=== PATIENT | female | born 1975 | race Caucasian/White ===

== ENCOUNTER 2016-08-13 02:20 | Emergency (ER) | payer BC ==
[2016-02-02 14:39] VITALS: BMI 21.3
[~2016-08-13 02:20] MED LIST: AMBIEN10 MG PO; CARAFATE1 G PO; COLACE100 MG PO; CREON (PANCRELI1 CAP PO; CYMBALTA60 MG PO; DEPAKOTE500 MG PO; EFFEXOR75 MG PO; ESTRACE1 MG PO; ESTRACE2 MG PO; IMITREX100 MG PO; IMITREX50 MG PO; K-DUR20 MEQ PO; NUCYNTA100 MG PO; PHENERGAN25 M1 PO; PROTONIX40 MG PO; TOPAMAX100 MG PO; TOPAMAX25 MG PO; TOPAMAX50 MG PO; XANAX1 MG PO; ZANAFLEX4 MG PO; ZOFRAN ODT4 MG/UDTAB PO
[2016-08-13 02:59] LABS: BASOPHILS 0.2 % (0.0-2.0); EOSINOPHILS 1.9 % (0-7); HEMATOCRIT 37.3 % (36.0-48.0); HEMOGLOBIN 12.6 g/dL (12-16); LYMPHOCYTES 48.6 % (15-50); MCH 31.6 pg (26.0-34.0); MCHC 33.8 g/dL (31.0-37.0); MCV 93.5 fL (80.0-100.0); MEAN PLATELET VOLUME 9.2 fL (7.4-10.4); MONOCYTES 7.5 % (2-11); NEUTROPHILS 41.8 % (40-80); PLATELET COUNT 198 10x3/uL (130-400); RBC 3.99 10x6/uL (4.00-5.40); RDW 12.3 % (11.5-14.5); WBC 6.2 10x3/uL (4.8-10.8)
[2016-08-13 03:12] LABS: ALBUMIN 3.7 g/dL (3.4-5.0); ALKALINE PHOSPHATASE 67 U/L (46-116); ALT (SGPT) 19 U/L (10-68); AMYLASE - SERUM 53 U/L (25-115); CALC OSMOLALITY 281 mosm/kg (275-300); CALCIUM 9.1 mg/dL (8.5-10.1); CARBON DIOXIDE 26.7 mmol/L (21.0-32.0); CHLORIDE - SERUM 106 mmol/L (98-107); CREATININE - SERUM 0.8 mg/dL (0.6-1.3); GLUCOSE 111 mg/dL (74-106); LIPASE 356 U/L (73-393); POTASSIUM - SERUM 3.4 mmol/L (3.5-5.1); PROTEIN - SERUM 6.5 g/dL (6.4-8.2); SODIUM 141 mmol/L (136-145); UREA NITROGEN 12 mg/dL (7-18); eGFR NON AFRICAN AMERICAN 85 mL/min (90-120)
== END 2016-08-13 04:43 | disposition home or self-care (01) ==
LOC: D.ER 02:20
PROVIDERS: Emergency Medicine
DX: R10.9 Unspecified abdominal pain (principal)

== ENCOUNTER 2016-08-14 23:14 | Emergency (ER) | payer BC ==
[2016-02-02 14:39] VITALS: BMI 21.3
[2016-08-15] MEDS ORDERED: XANAX1 MG PO (14:49)
== END 2016-08-15 00:40 | disposition left against medical advice (07) ==
LOC: D.ER 23:14
DX: R10.9 Unspecified abdominal pain (principal); M50.20 Other cervical disc displacement, unspecified cervical region; F17.200 Nicotine dependence, unspecified, uncomplicated

== ENCOUNTER 2016-08-15 14:09 | Inpatient (IN) | payer BC ==
[~2016-08-15] VITALS: Ht 160 cm; Wt 54.4 kg
[2016-08-15] MEDS ORDERED: XANAX1 MG PO (14:49)
[2016-08-15 14:51] VITALS: BP 159/75
--- NOTE | 2016-08-15 15:14 | NUR ---
Patient Name: MAYA OCONNELL Admission Status: Urgent Accout number: [id number] Admission Date: 08-15-2016 : 1975 Admission Diagnosis: Attending: HERBERT Current LOS: 1 Anticipated DC Date: 08-18-2016 Planned Disposition: Home Primary Insurance: BLUE CROSS TRUE BLUE PPO Discharge Planning Comments: CM MET WITH PATIENT REGARDING D/C NEEDS AND PLANS. PATIENT STATED SHE LIVES WITH HER SPOUSE (ENEDELIA) AND HE WILL PICK HER UP AT DISCHARGE. PATIENT STATED SHE IS INDEPENDENT WITH HER CARE AND HAS NO DME AT HOME. PATIENT STATED SHE DOES NOT HAVE A PCP BUT GOES TO THE WALK IN CLINIC WHEN SICK. PATIENT STATED SHE LIVES IN A 10,000 SQ FOOT HOUSE AND HAS 2 STAIRCASES W/ RAILING INSIDE HER HOME AND ONE STEP W/O RAILING TO ENTER HOME. PATIENT STATED SHE HAS NEVER HAD HOME HEALTH. CM WILL CONTINUE TO FOLLOW PATIENT WITH D/C NEEDS AND PLANS. PCP NONE [facility] [address] [facility]- [phone] ENEDELIA (SPOUSE) [phone] Clock And Watch Hands Painter: [place] Is the patient Alert and Oriented? Yes 0 * How many steps to enter\exit or inside your home? 2 FLIGHTS 0 * PCP NONE 0 * Pharmacy [facility] [address] * Preadmission Environment Home with Family 0 * ADLs Independent 0 * Equipment None 0 * List name and contact numbers for known caregivers / representatives who currently or will assist patient after discharge: ENEDELIA OCONNELL (SPOUSE) [phone] 0 * Community resources currently utilized None 0 * Additional services required to return to the preadmission environment? Yes 0 * Can the patient safely return to the preadmission environment? Yes 0 * Has this patient been hospitalized within the prior 30 days at any hospital? No 0 Grand Total: 0
[2016-08-15 15:18] LABS: BASOPHILS 0.4 % (0.0-2.0); EOSINOPHILS 0.7 % (0-7); HEMATOCRIT 35.8 % (36.0-48.0); LYMPHOCYTES 41.3 % (15-50); MCH 31.5 pg (26.0-34.0); MCHC 33.5 g/dL (31.0-37.0); MEAN PLATELET VOLUME 9.8 fL (7.4-10.4); MONOCYTES 5.9 % (2-11); NEUTROPHILS 51.7 % (40-80); PLATELET COUNT 216 10x3/uL (130-400); RBC 3.81 10x6/uL (4.00-5.40); RDW 12.5 % (11.5-14.5); WBC 4.6 10x3/uL (4.8-10.8)
[2016-08-15 15:39] LABS: ALBUMIN 3.8 g/dL (3.4-5.0); ALKALINE PHOSPHATASE 67 U/L (46-116); ALT (SGPT) 26 U/L (10-68); AMYLASE - SERUM 37 U/L (25-115); BILIRUBIN - TOTAL 0.27 mg/dL (0.2-1.3); CALC OSMOLALITY 282 mosm/kg (275-300); CALCIUM 9.1 mg/dL (8.5-10.1); CHLORIDE - SERUM 108 mmol/L (98-107); CREATININE - SERUM 0.8 mg/dL (0.6-1.3); GLUCOSE 112 mg/dL (74-106); LIPASE 154 U/L (73-393); POTASSIUM - SERUM 3.6 mmol/L (3.5-5.1); PROTEIN - SERUM 6.1 g/dL (6.4-8.2); SODIUM 143 mmol/L (136-145); UREA NITROGEN 4 mg/dL (7-18); eGFR NON AFRICAN AMERICAN 85 mL/min (90-120)
[2016-08-15 16:25] VITALS: BP 159/75; BMI 21.3
--- NOTE | 2016-08-15 18:35 | NUR ---
PATIENT ADMITTED A DIRECT ADMIT FROM DR. TUCKER. PATIENT CAME IN ALERT AND ORIENTED. PATIENT ABD PAIN WITH PAIN MEDS ORDERED. BED IS LOW CALL LIGHT IS IN REACH
[2016-08-15 21:18] VITALS: BP 126/81
--- NOTE | 2016-08-15 21:25 | NUR ---
PHONE CALL RECEIVED FROM DR TUCKER IN WHICH HE STATES THAT THE PATIENT HAS TEXTED HIM AND SAID SHE IS UNBEARABLE PAIN. ASSESSED PT AT THIS TIME AND SHE WAS LYING ON LEFT SIDE WITH EYES CLOSED. PT AWOKEN AND ASKED PAIN LEVEL AND SHE STATED 8/10 IN THE LOWER ABDOMEN. LET DR TUCKER KNOW THIS INFORMATION AND HE ORDERED THE PT A ONE TIME DOSE OF ATIVAN 1MG IV.
[2016-08-16] VITALS (11 sets, daily range): BP systolic 102–143; BP diastolic 48–93
--- NOTE | 2016-08-16 17:06 | NUR ---
RECEIVED PT FROM THE MED SURG FLOOR. SHE CAME BY WHEELCHAIR. SHE HAS IV PATENT IN HER R HAND. WITH NS @ 125 CC/H, ZOFRAN DRIP AND DILAUDID FARM LOAN REPRESENTATIVE INTACT. PT STATES THAT SHE HAD THE START OF A HEADACHE AND SHE TOOK HER OWN IMITREX FROM HOME. BED IS LOW. CALL LIGHT IN REACH AND SIDE RAILS UP X 2. PT GETS UP TO BATHROOM ON HER OWN.
--- NOTE | 2016-08-16 17:30 | NUR ---
PT REQUEST TYLENOL. STATES HER HEAD IS STILL HURTING. SHE DOES NOT HAVE TYLENOL ORDERED. SHE TOOK HER OWN IMITREX ABOUT 30 MIN AGO. I TOLD HER THAT WE HAVE IT ON HER EMAR AND CAN GIVE IT TO HER. HER DIET WAS DELIVERED.
--- NOTE | 2016-08-16 19:05 | NUR ---
IN THE BATHROOM DURING INITIAL ROUNDS. BACK IN BED. INTRODUCED SELF. V/S TAKEN AND ASSESSMENT DONE. STATUS POST EGD TODAY. WITH IVF OF NS TO L FA @ 125cc/hr AND ZOFRAN DRIP. ON DILAUDID PROMOTIONS PRODUCER FOR PAIN MANAGEMENT.
--- NOTE | 2016-08-16 19:40 | NUR ---
DR. TUCKER HERE AND SPOKE WITH PT. SPOUSE AND DAUGHTER IN THE ROOM.
--- NOTE | 2016-08-16 19:47 | NUR ---
XANAX 1mg PO GIVEN FOR ANXIETY.
--- NOTE | 2016-08-16 22:03 | NUR ---
HS MEDS GIVEN. SEE E-MAR.
--- NOTE | 2016-08-17 01:30 | NUR ---
CALL LIGHT ANSWERED. ROOM TEMPERATURE ADJUSTED PER PT's REQUEST.
--- NOTE | 2016-08-17 02:29 | NUR ---
IV BAG CHANGED.
--- NOTE | 2016-08-17 04:21 | NUR ---
PROVIDED WITH CRANBERRY JUICE.
--- NOTE | 2016-08-17 06:30 | NUR ---
SLEPT FAIRLY DURING THE NIGHT. CONTINUING PLAN OF CARE.
[2016-08-17 07:15] VITALS: BP 113/72
--- NOTE | 2016-08-17 07:15 | NUR ---
PT RECEIVED LYING IN BED. REQUESTED IMITREX FOR HEADACHE. RATES PAIN 8 ON A SCALE OF 0-10. VSS. HEART RHYTHM REGULAR. BILATERAL LUNG SOUNDS CLEAR. ABDOMEN SOFT, NON-DISTENDED. IV NOTED TO LEFT FOREARM, PATENT, INFUSING NS @ 125 CC HR WITH DILAUDID PHYSICIAN/INTERNIST. CLEAN, DRY AND INTACT. NO REDNESS OR SWELLING NOTED. BED IN LOWEST POSITION. CALL LIGHT AND PHONE WITHIN REACH. SRU X2. STATES NO FURTHER NEEDS.
--- NOTE | 2016-08-17 08:00 | NUR ---
PT REQUESTED A DIET COKE. ORDERED HER 2 FROM [facility].
--- NOTE | 2016-08-17 09:53 | NUR ---
PT REQUESTED TOWELS TO CLEAN UP SPILLED DIET COKE AND A NEW MENU. PT STATES NO FURTHER NEEDS.
[2016-08-17 10:47] VITALS: Ht 160 cm; Wt 54.4 kg
--- NOTE | 2016-08-17 10:49 | NUR ---
PT REQUESTED XANAX TO HELP HER RELAX AND FALL ASLEEP. ADMINISTERED MEDICATION. PT STATES NO OTHER NEEDS. BED IN LOWEST POSITION. PHONE AND CALL LIGHT WITHIN REACH. SRU X2.
--- NOTE | 2016-08-17 12:20 | NUR ---
DIETARY IN ROOM TO DELIVER LUNCH TRAY. PT RESTING QUIETLY. DENIES NEEDS. BED IN LOWEST POSITION. PHONE AND CALL LIGHT WITHIN REACH. SRU X2.
--- NOTE | 2016-08-17 14:13 | NUR ---
PATINET RESTING QUIETLY WITH EYES CLOSED. RESPIRATIONS DEEP AND EVEN. IVF INFUSING PER ORDERS.
--- NOTE | 2016-08-17 15:00 | NUR ---
DR TUCKER WAS HERE TO SEE PT. DR TUCKER DISCUSSED DISCHARGE WITH PT. HE ALSO DISCUSSED DISCHARGE MEDICATIONS. PT STATED THAT SHE HAS A BAD MIGRAINE AND WANTS TO STAY UNTIL IN THE AM. DR TUCKER OK'D.
--- NOTE | 2016-08-17 15:48 | NUR ---
PT REQUESTED IMITREX. INFORMED PT SHE COULD NOT HAVE ANOTHER DOSE UNTIL TOMORROW. INSTANT POTATO PROCESSING SUPERVISOR COMPLETE. REPLACED WITH NEW DILAUDID SYRINGE. BED IN LOWEST POSITION. SRU X2. PHONE AND CALL LIGHT WITHIN REACH. DENIES NEEDS.
--- NOTE | 2016-08-17 16:11 | NUR ---
PT AAO X4, VISITING WITH FAMILY. MAGNESIUM SULFATE 2 GRAMS RECEIVED FROM PHARMACY. MEDICATION HUNG TO BE STARTED. DENIES ANY FURTHER NEEDS. BED IN LOWEST POSITION. PHONE AND CALL LIGHT WITHIN REACH. SRU X2.
--- NOTE | 2016-08-17 16:45 | NUR ---
TALKED TO DR TUCKER. PT REQUEST ANOTHER 100MG IMITREX. HE OK'D THIS. SHE HAD A PRESCRIPTION OF INJECTABLE IMITREX.IN HER HAND THAT HER WENT TO THE PHARMACY AND BOUGHT FOR HER. DISCUSSED WITH HER NOT TAKING HER OWN MEDS WHILE SHE WAS IN THE HOSPITAL. SHE AGREED NOT TO.
--- NOTE | 2016-08-17 17:09 | NUR ---
PT VISITING WITH FAMILY. REQUESTS ANOTHER DOSE OF IMITREX. PT DENIES FURTHER NEEDS. BED IN LOWEST POSITION. PHONE AND CALL LIGHT WITHIN REACH. SRU X2.
--- NOTE | 2016-08-17 17:21 | NUR ---
PT RESTING QUIETLY. ADMINISTERED 100 MG DOSE IMITREX. PT DENIES FURTHER NEEDS. BED IN LOWEST POSITION. PHONE AND CALL LIGHT WITHIN REACH. SRU X2.
--- NOTE | 2016-08-17 18:08 | NUR ---
PT SITTING UP EATING DINNER. HAS NO COMPLAINTS. DENIES NEEDS AT THIS TIME. BED IN LOWEST POSITION. PHONE AND CALL LIGHT WITHIN REACH. SRU X2.
--- NOTE | 2016-08-17 18:19 | NUR ---
CHANGED IV BAG. PT OBSERVED FALLING ASLEEP SEVERAL TIMES WHILE EATING. EASILY AROUSED, BUT FALLS RIGHT BACK TO SLEEP. DENIES ANY NEEDS AT THIS TIME. BED IN LOWEST POSITION. SRU X2. PHONE AND CALL LIGHT WITHIN REACH.
[2016-08-17 19:50] VITALS: BP 122/83
--- NOTE | 2016-08-17 19:50 | NUR ---
REC'D PT SITTING UP IN BED, DROWSY BUT RESPONDS TO VERBAL STIMULI. VS WNL. RESP EVEN AND UNLABORED. LUNGS CLEAR BILATERALLY. BOWEL SOUNDS PRESENT X4. IV TO LEFT FOREARM WITH NS INFUSING AT 125CC/HR AND ZOFRAN INFUSING AT 4.7CC/HR PER PUMP. DILAUDID SPARK TESTER AVAILABLE FOR PAIN CONTROL. PT RATES PAIN 9/10 TO HER HEAD. FRESH ICE WATER AND DIET COLA PROVIDED PER PT REQUEST. KALYAN MORAN
--- NOTE | 2016-08-17 20:52 | NUR ---
MEDICATIONS ADMINISTERED ORDERED. SEE E-MAR FOR DOCUMENTATION. DENIES FURTHER NEEDS. KALYAN MORAN
--- NOTE | 2016-08-17 22:42 | NUR ---
ROOM CHECK, PT RESTING WITH EYES CLOSED ON HER BACK. RESP EVEN AND UNLABORED. KALYAN MORAN
--- NOTE | 2016-08-17 23:36 | NUR ---
SNACKS PROVIDED PER PT REQUEST. KALYAN MORAN
[2016-08-18 01:10] VITALS: BP 105/73
--- NOTE | 2016-08-18 01:10 | NUR ---
PT RESTING WITH EYES CLOSED. AWAKENS TO VERBAL STIMULI. VS TAKEN AND WNL. PT RATES PAIN 5/10. DISC PAD PLATE FILLER DILAUDID BUTTON WITHIN PT'S REACH. DENIES NEEDS AT THIS TIME. KALYAN MORAN
--- NOTE | 2016-08-18 02:30 | NUR ---
NEW BAG OF NS HUNG AT THIS TIME. PT RESTING WITH EYES CLOSED. AWAKENS EASILY TO VERBAL STIMULI. KALYAN MORAN
[2016-08-18 04:30] VITALS: BP 99/54
--- NOTE | 2016-08-18 04:30 | NUR ---
VS TAKEN AND WNL. PT STATES PAIN IS BETTER AT 4/10. DENIES NEEDS AT THIS TIME. KALYAN MORAN
--- NOTE | 2016-08-18 06:40 | NUR ---
PT RESTING WITH EYES CLOSED. RESP EVEN AND UNLABORED. KALYAN MORAN
--- NOTE | 2016-08-18 07:30 | NUR ---
PATIENT UP AMBULATING IN THE HALLWAY WITH HER IV TO THE NUTRITION ROOM. SHE DENIED NEEDS OR ASSISTANCE.
--- NOTE | 2016-08-18 08:15 | NUR ---
ABDIFATAH ATE HER BREAKFAST AND IS RESTING IN BED FLAT WITH EYES CLOSED. DISCUSSED ORDERS TO GO HOME AND SHE STATED THAT HER CAN BE HERE TO GET HER AT 1030. SHE ANTICIPATES GETTING A PUPPY TODAY.
--- NOTE | 2016-08-18 08:20 | NUR ---
ROUNDING ON PATIENT THIS MORNING. DENIES NEEDS AND STATES ALL IS GOOD. TALKED ABOUT PUPPY SHE WAS GOING TO GET TODAY, BUT NOW GOING TO GET NEXT WEEK. BREAKFAST TRAY REMOVED FROM ROOM. PT DENIES NEEDS AT THIS TIME.
--- NOTE | 2016-08-18 09:13 | NUR ---
DR. TUCKER HERE TO ASSESS PATIENT. SHE WAS RESTING QUIETLY WITH EYES CLOSED. AWKOKE TO TOUCH AND REPEATED CALLING OF HER NAME. SHE STATED THAT SHE IS FEELING BETTER AND READY O GO HOME THIS MORNING. HER WILL BE COMING TO DRIVE HER HOME.
--- NOTE | 2016-10-11 10:17 | OP ---
PATIENT NAME: MAYA OCONNELL MEDICAL RECORD: [id number] :79 [facility] DATE:08/15/16 SURGEON: DARIUSZ TUCKER MD DATE OF OPERATION: 08/16/2016 PREOPERATIVE DIAGNOSIS: Epigastric and right upper quadrant abdominal pain. POSTOPERATIVE DIAGNOSIS: Epigastric and right upper quadrant abdominal pain with bile gastritis. PROCEDURE: Esophagogastroduodenoscopy with antral biopsies. SURGEON: Dariusz Tucker MD FINANCIAL REPORTING ANALYST: None. BLOOD LOSS: Minimal. ANESTHESIA: IV sedation. COMPLICATIONS: None. The risks, possible complications and alternatives to procedure were explained to the patient. She elects to proceed. The indications for endoscopy were right upper quadrant and epigastric abdominal pain. OPERATIVE COURSE: The patient was conveyed to the endoscopy suite electively on 08/16/2016. IV sedation was induced by the anesthesia staff. A bite block was inserted. A gastroscope was inserted into the mouth. It was advanced easily into the hypopharynx. The esophagus was easily intubated as were the stomach and duodenum. Upon withdrawal, retroflexed and angulus views were obtained. Antral biopsies were obtained. The endoscope was then withdrawn under direct vision. I am going to place the patient on a binder. We are going to continue with the current medication regimen. I will stop the proton pump inhibitor drip. TRANSINT:[id number] Voice Confirmation ID: [id number] DOCUMENT ID: [id number] DARIUSZ TUCKER MD at 1017 CC: [id number] DICTATION DATE: 08/16/16 1309 CREW DIRECTOR: 08/16/16 2236 DIS IN 08/18/16 [id number] [place] [address]
--- NOTE | 2016-10-11 10:17 | HP ---
PATIENT: MAYA OCONNELL MEDICAL RECORD: [id number] ACCOUNT: [id number] [facility] [birth year] ADMISSION DATE: 08/15/16 HISTORY AND PHYSICAL EXAMINATION CHIEF COMPLAINT: Abdominal pain. HISTORY OF PRESENT ILLNESS: The patient has recurrent abdominal pain. She has undergone a pretty extensive workup. She has seen every lens inserter in town, I believe in addition to Dr. Castorena who is now retired. She was admitted with pancreatitis. She contacted Dr. Satish Pereira who contacted me. We was placed on a proton pump inhibitor drip as well as Zofran drip and I have given her an anxiolytic. She has had a workup in several states. I have participated in her care in the past. She has undergone endoscopy by Dr. Huitron. I contacted Dr. Smith yesterday who is on-call for Dr. Huitron. The patient has undergone a cholecystectomy in the past. She has undergone abdominoplasty as well. She has not undergone biliary manometry as far as I know. The patient's pain has been in the epigastrium as well as right upper quadrant. It radiates through to the back, it is associated with nausea. She has frequent headaches as well. The patient was a direct admit. PAST MEDICAL AND SURGICAL HISTORY: Abdominal pain, history of hysterectomy, history of abdominoplasty, history of cholecystectomy, history of cardiomyopathy during , which is resolving. SOCIAL HISTORY: Nonsmoker. HOME MEDICATIONS: Xanax, Cymbalta, Imitrex, Ambien, and Estrace. REVIEW OF SYSTEMS: As described above. Negative for coronary artery disease or hypertension. Negative for CVA or seizures. Positive for frequent migraines. Negative for diabetes or thyroid problems. Negative for renal disease or hepatitis. Positive for insertion and removal of some type of scalp electrode device that was for treatment of migraine headaches. PHYSICAL EXAMINATION: GENERAL: The patient does not appear acutely ill. She does not appear chronically ill. VITAL SIGNS: Reviewed. HEAD: External ears appear normal. EYES: Extraocular movements are intact. NECK: Trachea is midline. CHEST: No intercostal retractions. PULMONARY: Nonlabored and no stridor. ABDOMEN: Tenderness in the right upper quadrant as well as the epigastrium. No peritonitis. Her abdomen is very thin. Scars are well healed. I detect no incisional hernias. EXTREMITIES: No peripheral cyanosis. INTEGUMENT: No rash and no ulcerations. PSYCHIATRIC: Normal affect. NEUROLOGIC: Nonfocal, no lethargy. The patient answers questions appropriately, moves all extremities well. BACK: No thoracic kyphosis. LYMPHATICS: No lymphangitic streaking of the exposed extremities. HISTORY AND PHYSICAL [id number] MAYA OCONNELL LABORATORY DATA: She had elevation of pancreatic enzymes yesterday, but none today. Her nausea and pain are improved today on the prescribed therapy. IMPRESSION: Abdominal pain of uncertain etiology in the epigastrium and right upper quadrant in a patient who has had a history of pancreatitis. PLAN: EGD. TRANSINT:[id number] Voice Confirmation ID: [id number] DOCUMENT ID: [id number] KELLE TUCKER MD at 1017 CC: ANAMARIA MOORE M.D. [id number] DICTATION DATE: 08/16/16 1238 LUBRICATION WORKER: 08/16/16 1410 DIS IN 08/18/16 [address] [place] [address]
--- NOTE | 2016-10-11 10:17 | DS ---
PATIENT:MAYA OCONNELL :79 MEDICAL RECORD: [id number] DISCHARGE SUMMARY ADMISSION DATE: 08/15/16 DISCHARGE DATE: 08/18/16 PRINCIPAL DIAGNOSES: 1. Pancreatitis. 2. Bile reflux gastritis. 3. Migraine headache. HOSPITAL COURSE: The patient was admitted with pancreatitis. Her amylase and lipase normalized. The patient underwent an EGD. This was consistent with bile reflux gastritis. The patient was started on Questran Light. She had a migraine headache. This largely resolved and she was dismissed home on 08/18/2016. She is going to follow up with me on a p.r.n. basis. She is being dismissed home on [place], Zofran, Cymbalta and Questran Light. TRANSINT:[id number] Voice Confirmation ID: [id number] DOCUMENT ID: [id number] KELLE TUCKER MD at 1017 CC: [id number] DICTATION DATE: 08/18/16 0901 PILOT PLANT SUPERVISOR: 08/18/16 1725 DIS IN 08/18/16 [id number] [place] [address]
== END 2016-08-18 10:40 | disposition home or self-care (01) | DRG 392 ==
LOC: D.MS 14:09 → D.WS 14:09
PROVIDERS: ADMIT Surgery
PROC: 0DB68ZX Excision of Stomach, Via Natural or Artificial Opening Endoscopic, Diagnostic (ICD-10-PCS; principal; 2016-08-16 11:00)
DX: R10.13 Epigastric pain (principal); R10.11 Right upper quadrant pain; G43.909 Migraine, unspecified, not intractable, without status migrainosus; I10 Essential (primary) hypertension

== ENCOUNTER 2016-10-10 08:23 | Observation (INO) | payer BC ==
[~2016-10-10] VITALS: Ht 160 cm; Wt 57.6 kg
[2016-10-10 10:07] VITALS: BP 122/86; BMI 24.2
[2016-10-10 11:34] VITALS: BP 117/79
[2016-10-10 16:05] VITALS: BP 152/89
[2016-10-10 16:31] LABS: BASOPHILS 0.1 % (0.0-2.0); EOSINOPHILS 1.9 % (0-7); HEMOGLOBIN 12.5 g/dL (12-16); IMMATURE GRANULOCYTES 0.1 % (0-5); MCH 32.3 pg (26.0-34.0); MCHC 34.7 g/dL (31.0-37.0); MEAN PLATELET VOLUME 9.3 fL (7.4-10.4); MONOCYTES 5.9 % (2-11); PLATELET COUNT 199 10x3/uL (130-400); RBC 3.87 10x6/uL (4.00-5.40); WBC 6.8 10x3/uL (4.8-10.8)
[2016-10-10 17:41] LABS: ALBUMIN 3.5 g/dL (3.4-5.0); ALKALINE PHOSPHATASE 119 U/L (46-116); ALT (SGPT) 44 U/L (10-68); BILIRUBIN - TOTAL 0.47 mg/dL (0.2-1.3); C-REACTIVE PROTEIN 0.3 mg/dL (0.0-0.9); CALC OSMOLALITY 275 mosm/kg (275-300); CALCIUM 9.1 mg/dL (8.5-10.1); CARBON DIOXIDE 28.8 mmol/L (21.0-32.0); CHLORIDE - SERUM 101 mmol/L (98-107); CREATININE - SERUM 0.7 mg/dL (0.6-1.3); GLUCOSE 98 mg/dL (74-106); LIPASE 122 U/L (73-393); POTASSIUM - SERUM 4.3 mmol/L (3.5-5.1); PROTEIN - SERUM 6.4 g/dL (6.4-8.2); SODIUM 139 mmol/L (136-145); T4 THYROXIN - FREE 0.79 ng/dL (0.76-1.46); THYROID STIMULATING HORMONE 1.52 uIU/mL (0.36-3.74); UREA NITROGEN 8 mg/dL (7-18); eGFR NON AFRICAN AMERICAN > 90 mL/min (90-120)
[2016-10-10 18:22] LABS: ERYTHROCYTE SEDIMENTATION RATE 13 mm/hr (0-20)
--- NOTE | 2016-10-10 19:10 | NUR ---
URINE SPECIMEN COLLECTED AND TAKEN TO LAB.
--- NOTE | 2016-10-10 19:24 | NUR ---
CONTINOUS PULSE OX SET UP AT BED SIDE TO MONITOR PT CLOSELY.
[2016-10-10 19:26] LABS: APPEARANCE CLEAR (CLEAR); BILIRUBIN NEGATIVE (NEGATIVE); COLOR YELLOW (YELLOW); GLUCOSE NEGATIVE (NEGATIVE); KETONE NEGATIVE (NEGATIVE); LEUKOCYTE ESTERASE NEGATIVE (NEGATIVE); NITRITE NEGATIVE (NEGATIVE); PROTEIN NEGATIVE (NEGATIVE); UROBILINOGEN NORMAL (NORMAL)
[2016-10-10 19:44] LABS: PROTEIN - URINE 14.5 mg/dL (0.0-11.9)
[2016-10-10 20:00] VITALS: BP 130/83
--- NOTE | 2016-10-10 22:41 | NUR ---
IN BED RESTING, RESPERATIONS EVEN, NO S/S DISTRESS NOTED.
--- NOTE | 2016-10-10 22:51 | NUR ---
FRESH CUP OF ICE AND 2 LEMON [place] SODAS GIVEN AT PT REQUEST.
--- NOTE | 2016-10-10 23:44 | NUR ---
LIFT MECHANIC AT BEDSIDE FOR VS, NEEDS ADDRESSED. CALL LIGHT IN REACH.CONT TO MONITOR.
[2016-10-11] VITALS: BP 113/74
--- NOTE | 2016-10-11 00:05 | NUR ---
XANAX 0.5 MG GIVEN AT PT REQUEST TO ASSIST WITH SLEEPING. SPO2 94% ON RA, VITALS STABLE, WILL CONT TO MONITOR.
[2016-10-11 04:00] VITALS: BP 103/66
[2016-10-11 05:40] LABS: MAGNESIUM - SERUM 1.8 mg/dL (1.8-2.4); PHOSPHOROUS 4.1 mg/dL (2.5-4.9)
--- NOTE | 2016-10-11 07:29 | CN ---
PATIENT NAME:MAYA OCONNELL MEDICAL RECORD: [id number] : [birth year] LOCATION:. D.2112 ADMIT DATE: 10/10/16 ACCOUNT: [id number] CONSULTING PHYSICIAN: KELLE LEO DO REFERRING PHYSICIAN: KELLE TUCKER MD DATE OF CONSULTATION: 10/10/2016 HISTORY OF PRESENT ILLNESS: A 41-year-old female admitted by Dr. Tucker for swelling, back pain. PAST MEDICAL HISTORY: Significant for back pain, also history of migraines and known diagnosis of depression, sees a local psychiatrist, was prescribed her medications. She has had a neurology evaluation and prior admission to Dr. Evans with recommendations to avoid sedative narcotics, has had numerous GI procedures, has had pancreatitis in the past, admitted today, believe to be for the swelling and back pain. No H&P presently available and again, the patient is new to me. Nephrology was also consulted as well as rheumatology. PAST MEDICAL HISTORY: Significant for back pain, has seen pain management in the past and has had injections, stimulator placed, also history of laparoscopic cholecystectomy, hysterectomy. LISTED MEDICATIONS: Xanax 1 mg t.i.d. p.r.n. anxiety, Cymbalta 60 mg q.h.s. REVIEW OF SYSTEMS: GENERAL: Reported weight gain. Denies change in appetite. HEENT: No present cephalgia, no visual changes, no tinnitus, epistaxis or dysphagia. CARDIOVASCULAR: Denies chest pain, denies palpitations. PULMONARY: Denies hemoptysis, denies night sweats. GASTROINTESTINAL: Denies hematemesis, hematochezia or melena. GENITOURINARY: Denies dysuria. MUSCULOSKELETAL: Lumbar pain, prior history as above. PHYSICAL EXAMINATION: VITAL SIGNS: Temperature 98.2, blood pressure 152/89, heart rate 101, respirations 18, O2 sat is 97% on room air. GENERAL: Alert and oriented, no present distress. HEENT: Head is normocephalic, atraumatic. Eyes: Pupils are equally round and reactive to light and accommodation. Extraocular muscles intact. Conjunctiva was not injected. Ears: Canals patent, TMs are intact. Nose: Nares patent without drainage. Throat: No erythema, no exudates. NECK: Supple. No lymphadenopathy, no JVD. HEART: Regular, borderline tachycardic. LUNGS: Clear to auscultation bilaterally. Breathing is nonlabored. ABDOMEN: Soft, nondistended. Bowel sounds positive. EXTREMITIES: Present times 4, no edema at present. GENERAL: No appreciable focal deficits. SKIN: Warm, dry. No rash. LABORATORY DATA: CBC: White count 6.8, hemoglobin 12.5, hematocrit 36 and platelets 199. Sed rate is 13. Sodium 139, potassium 4.3, chloride 101, bicarb 28.8, BUN 8, creatinine 0.7. AST 41, ALT 44. C-reactive protein is 0.3. Alkaline phosphatase 119. TSH is 1.52, free T4 is 0.79. Urine culture pending. CONSULT REPORT [id number] MAYA OCONNELL ASSESSMENT AND PLAN: 1. Reported abdominal distention and edema. Ultrasound pending 2. Anxiety, depression, is on high dose Xanax 1 mg t.i.d. from her psychiatrist concerned with her pain medication management. She is on a Dilaudid NARROW GAUGE ENGINEER with breakthrough hydrocodone ordered, concerned with the narcotics, prescribed in addition to Xanax, but also concerned with stopping Xanax completely. We will place on Xanax 0.5 mg b.i.d. p.r.n. We will follow this patient in the hospital. She is not a clinic patient. TRANSINT:[id number] Voice Confirmation ID: [id number] DOCUMENT ID: [id number] KELLE LEO DO at 0729 CC: [id number] DICTATION DATE: 10/10/161915 INSTRUMENT LENS GRINDER APPRENTICE: 10/11/16 0117 ADM IN [place] [address] [place] [address]
[2016-10-11 08:00] VITALS: BP 117/65
[2016-10-11 10:41] VITALS: Ht 160 cm; Wt 57.6 kg
[2016-10-11 12:00] VITALS: BP 113/74
--- NOTE | 2016-10-11 15:31 | CN ---
PATIENT NAME:KIRTSEN CHRISTIANSON MEDICAL RECORD: [id number] : 79 LOCATION:D. D.2112 ADMIT DATE: 10/10/16 ACCOUNT: [id number] CONSULTING PHYSICIAN: BECCA REYNOLDS MD REFERRING PHYSICIAN: KELLE TUCKER MD DATE OF CONSULTATION: 10/10/2016 Rheumatology Consultation HISTORY OF PRESENT ILLNESS: Kirsten Christianson is a 41-year-old woman, whom I have been asked to evaluate by Dr. Tucker regarding musculoskeletal symptoms. The patient reports she was in stable health until last week when she developed discomfort of left lower back, which is fairly intense, used heat, ice, laid down for several days, gradually improved and 2 days ago, felt better, went out to eat with her family and then went to a tennis court and knocked 3 tennis balls and soon thereafter had a severe flare of pain in the right lower back, which has persisted and now some pain in the left lower back. The pain does not radiate. She denies leg weakness, bowel or bladder incontinence. The patient reports remote history of back pain for which she may have had lumbar MRI years ago, open MRI and she underwent recurrent lumbar facet injection by Dr. Beasley, pain physician for several years with possibly some temporary improvement. She reports she has not seen him for years. She has a very longstanding history of migraine headaches. She had numerous visits to Emergency Room in several admissions for migraine headaches. In the past, she was treated with a variety of medications including Nucynta, Cymbalta, Zanaflex, Ambien, Xanax, Botox injections, Imitrex, Butrans patch, oxycodone, hydrocodone, Abilify, Lyrica. She was treated by Dr. Becca Persaud for years for headaches including Botox injections. Dr. Persaud performed nerve conduction studies June 2015, which was negative for carpal tunnel syndrome. She had a history of intermittent mild carpal tunnel type symptoms. She has cervical degenerative disc disease. MRI at [facility] of 2014 at C3-C4 and C5-C6 level. She reportedly evaluated by Dr. Rosenthal, but did not recommend any neck surgery. She has longstanding history of diffuse aches and pains, somewhat sore all over. Aches and pains increase with cold and damp weather. She has a long history of sleep disturbance, aches and pains may respond to heat. In the distant past, she did some exercise. She stopped taking regular aerobic exercise from 2015 when her mood worsened after her niece was murdered in [place]. In the past, she has had some intermittent constipation, diarrhea, was never formally diagnosed with irritable bowel syndrome. The patient reports she does not have a primary care physician, but current medicines were written by Dr. Priyanka Hollins of psychiatrist. HOME MEDICATIONS: Imitrex p.r.n. headaches, zolpidem 10 mg h.s. p.r.n., ____ for several weeks, Xanax 1 mg t.i.d., Cymbalta 60 mg a day, Estrace 2 mg daily and a prescription of pain cream from Dr. Hollins. CONSULT REPORT [id number] KIRSTEN CHRISTIANSON The patient reports she had a "Plevna procedure", which is a vagal nerve stimulator, which performed dialysis in August 2016 for migraine headaches, so far has been successful in significant reducing headaches. CURRENT MEDICATIONS: Zofran IV 24 hour drip, Dilaudid INSTITUTIONAL COOK p.r.n., cyclobenzaprine 5 mg t.i.d., Neutra-Phos, potassium chloride, magnesium sulfate, Zofran injection p.r.n., famotidine 40 mg every 12 hours, hydrocodone 5/325 every 4 hours p.r.n. LABORATORY DATA: WBC 6800, hemoglobin 12.5, and platelets 199,000. ESR 13, creatinine 0.7. ALT 41, AST 44, alkaline phosphatase 119. C-reactive protein 0.3, lipase 122. TSH 1.52. Free T4 of 0.79. All tests are pending, rheumatoid factor, SERGO screen, ANCA. The patient reports she has had some abdominal fullness over the last few days and came "20 pounds". PAST MEDICAL HISTORY: SHE IS ALLERGIC TO REGLAN (STARTED DYSKINESIA), cholecystectomy, hysterectomy, tummy tuck. Longstanding migraine headaches as outlined above. She had Plevna procedure performed in [place], [place] in August 2016, which is a vagal nerve stimulator to reduce headaches (has helped her ____ headache). She is 3, para 3. She had a cardiomyopathy 7 years ago with decreased ejection fraction that was gradually returned to normal. SOCIAL HISTORY: She does not smoke or drink. She lives locally with her and 3 children. She was working part-time on a [employer], of course, she has not been able to work for some time. FAMILY HISTORY: Her father had lupus like illness, aortic valve disease with aortic valve replacement and ultimately with fungal endocarditis, positive history of atherosclerotic heart disease. No known family history of rheumatoid arthritis. REVIEW OF SYSTEMS: She has not had Raynaud's, photosensitivity, alopecia, pleural effusion, pericarditis, TIA, stroke, deep vein thrombosis, bleeding or clotting disorders, focal muscle weakness. PHYSICAL EXAMINATION: VITAL SIGNS: Blood pressure ____, pulse 101, respirations 18, and temperature 98. GENERAL: This is a well-developed woman, who is alert, oriented, and somewhat uncomfortable. HEENT: Head: Normal female hair pattern. Eyes: Conjunctivae are clear. Extraocular movements are normal. Throat: Clear. Mouth: Moist. NECK: Supple. Trachea is midline. There is no adenopathy of neck, axilla or inguinal areas. LUNGS: Clear. CARDIOVASCULAR: S1 and S2 are normal without gallop, murmur or rub. Carotids are 2+ without delay or bruit. She has implantable device left upper anterior chest. ABDOMEN: Soft, slightly full nontender, without masses. Liver, spleen, and kidneys not palpable. CONSULT REPORT [id number] KIRSTEN CHRISTIANSON MUSCULOSKELETAL: She has positive point count for fibromyalgia in the pelvic and shoulder girdles and axis skeleton, sometimes costochondral junctions. She has more prominent tenderness of the right and left lumbar paraspinal muscles. There is lumbar discomfort with flexion, extension and lateral bending. There is no inflammation or limited motion in wrists, fingers, elbows and knees. She has tight hamstring muscles with straight leg raising. NEUROLOGIC: She is alert and oriented. Moves all extremities. There is no focal weakness. Reflexes are symmetrical. SKIN: Without malar rash, discoid lupus, purpura, petechiae or infarcts. PSYCHIATRIC: Alert and oriented, somewhat anxious. IMPRESSION: 1. Lumbar strain. 2. History of past chronic lumbar discomfort with sed injections by pain physician. 3. Criteria for fibromyalgia. A. Diffuse aches and pains. B. Positive point count. C. Costochondral tenderness. D. Sleep disturbance. E. Cold intolerance. F. Possible irritable bowel syndrome. G. Migraine headaches, diagnosed and performed, status post Plevna procedure (implantable vagal nerve stimulator) for chronic migraine headaches. 4. History of cardiomyopathy, eventually resolved. RECOMMENDATIONS: 1. Continue current Flexeril. 2. The patient advised to get up and move frequently to reduce stiffness and soreness. 3. May use heat to affected areas ____ precautions. 4. As current acute problems resolved, we later placed on a regular program of stretching exercises, in general aerobic exercises and walking. 5. Minimize use of narcotic analgesics. 6. Await results of SERGO, RA, and other serologies. 7. Monitor abdominal status. TRANSINT:[id number] Voice Confirmation ID: [id number] DOCUMENT ID: [id number] BECCA REYNOLDS MD at 1531 CC: [id number] DICTATION DATE: 10/10/16 1838 FISH TRAPPER: 10/11/16 0038 ADM IN [facility] [address] [id number]
[2016-10-11 16:00] VITALS: BP 107/66
--- NOTE | 2016-10-11 16:23 | NUR ---
ALERT AND ORIENTED X4. RESTING IN BED. CONTINUE PAIN MANAGEMENT. DENIES SOB. PATIENT STATES, "I SWELL AND HURT LIKE THIS EVERYTIME AFTER SURGERY, BUT THANKFULLY THE SWELLING HAS GONE DOWN." SURGERY WAS IN AUGUST FOR NEURO PACEMAKER. SINUS RHYTHM 85bpm ON TELEMETRY. BED LOCKED AND LOW. CALL LIGHT IN REACH. TWO SIDERAILS UP. ENCOURAGE TO CALL FOR HELP WHEN OOB. BED ALARM ON. SCDs ON.
--- NOTE | 2016-10-11 21:02 | NUR ---
HS MEDS GIVEN, UP TO BR GAIT STEADY.
[2016-10-11 21:56] VITALS: BP 95/55
--- NOTE | 2016-10-12 00:12 | NUR ---
MINE TECHNICIAN AT BEDSIDE TO OBTAIN VITALS, CALL LIGHT IN REACH. WILL CONTINUE WITH PLAN OF CARE.
[2016-10-12 01:17] VITALS: BP 136/90
[2016-10-12 05:11] VITALS: BP 127/77
--- NOTE | 2016-10-12 07:30 | NUR ---
PATIENT IS RESTING QUIETLY WITH EYES CLOSED. SHE AWOKE TO VOICE AND GENTLE TOUCH. SHE STATE SHTAT HER PAIN IS CONTROLED. IVF IS PATENT TO THE RIGHT FOREARM. CONTINUOUS PULSE OX IN USE. 94% ON RA WHILE ASLEEP. UP TO 98% WHEN AWAKE. SHE ANTICIPATES GOING HOME TODAY.
[2016-10-12 07:39] VITALS: BP 112/64
[2016-10-12 08:22] LABS: T3 - FREE 4.5 pg/mL (2.0-4.4)
--- NOTE | 2016-10-12 10:00 | NUR ---
ABDIFATAH IS AWAKE AND WITHOUT DISTRESS. SHE'S REQUESTED A XANAX WITH HER FLEXERIL THIS MORNING. WE DISCUSSED THAT SHE IS ONLY ORDERED TO HAVE THIS TWICE DAILY. SHE VOICES UNDERSTANDING. SHE C/O BACK PAIN AND STIFFNESS. MEDICATIONS GIVEN PER REQUEST.
[2016-10-12 11:19] LABS: HEP B CORE AB TOTAL Negative (Negative); HEPATITIS C ANTIBODY <0.1 (0.0-0.9)
[2016-10-12] MEDS ORDERED: XANAX2 MG PO (11:21)
[2016-10-12] MEDS ORDERED: CYCLOBENZAPRINE10 MG PO (11:22)
[2016-10-12] MEDS ORDERED: HYDROCODONE-APA1 TAB PO (11:23)
[2016-10-12 12:11] VITALS: BP 99/60
--- NOTE | 2016-10-12 12:30 | NUR ---
DISCUSSED PATIENT'S DISCHARGE INSTRUCTIONS. SHE VOICED UNDERSTANDING REGARDING HER F/U APPTS AND MEDICATIONS. PRESCRIPTIONS GIVEN. PHARMACY CALLED FOR FLU VACCINE.
--- NOTE | 2016-10-12 13:00 | NUR ---
PATIENT IS OUT OF HER ROOM. SHE'D BEEN ASKED TO USE CALL LIGHT TO REQUEST A W/C ESCORT TO THE FRONT DOOR. SHE DID NOT.
[2016-10-12 13:15] LABS: ANA REFLEX - DIRECT Negative (Negative)
--- NOTE | 2016-10-12 13:33 | NUR ---
FLU VACCINE GIVEN. SHE IS WAITING FOR HER TO COME PICK HER UP.
[2016-10-13 14:24] LABS: EHRLICHIA CHAFF IGG Negative (Neg:<1:64); EHRLICHIA CHAFF IGM Negative (Neg:<1:20); HGE IGG TITER Negative (Neg:<1:64); HGE IGM TITER Negative (Neg:<1:20)
[2016-10-13 15:23] LABS: HISTOPLASMA GAL MANNAN AG SER 0.18 ng/mL (0.00-0.49)
[2016-10-13 15:23] LABS: ANCA - ANTIMYELOPEROXIDASE <9.0 U/mL (0.0-9.0); ANCA - ANTIPROTEINASE 3 <3.5 U/mL (0.0-3.5); ANCA - ATYPICAL <1:20 titer (Neg:<1:20); ANCA - CYTOPLASMIC <1:20 titer (Neg:<1:20); ANCA - PERINUCLEAR <1:20 titer (Neg:<1:20)
[2016-10-13 20:08] LABS: RMSF IGM 0.31 index (0.00-0.89)
--- NOTE | 2016-10-31 08:17 | EC ---
PATIENT:MAYA OCONNELL DATE OF SERVICE: 10/10/16 SEX: F MEDICAL RECORD: [id number] DATE OF : [birth year] LOCATION:D. D.211 AGE OF PATIENT: 41 ADMISSION DATE: 10/10/16 REFERRING PHYSICIAN: INTERPRETING PHYSICIAN: TATYANA BARRIENTOS M.D. ECHOCARDIOGRAM REPORT ECHO CHARGES 4 ECHO COMPLETE CLINICAL DIAGNOSIS: CARDIOMYOPATHY/ ELEVATED BNP/EDEMA ECHOCARDIOGRAPHIC MEASUREMENTS (adult normal given) AC root (d.<3.7cm) 2.8 LV Septum d (<1.2 cm> 1.0 Valve Excursion 1.5 LV Septum (systole) 1.8 Left Atria (s.<4.0cm> 2.9 LVPW d(<1.2cm) 1.0 RV (d.<2.3cm) 3.2 LVPW (sytole) 1.6 LV diastole(<5.6CM) 4.4 MV E-F(>70mm/sec) LV systole 2.4 LVOT Diameter 1.9 MV exc.(>10mm) Est.ejection fraction (50-75%) Pericardial Effusion N DOPPLER: LVIT A 51.0 E 83.0 LA RVSP 31.0 LVOT 100 AOP1/2T Asc. Ao 132 RVOT 48.0 RA PA 90.0 AV Gradient Peak 7.0 AV Mean 3.7 AV Area 2.0 MV Gradient Peak 2.8 MV Mean 1.3 MV Area COMMENTS: Automotive Refinish Technician: Magy GOMEZ Ultrasound Tech:Zari Barrientos TAPE# PACS DATE OF SERVICE: 10/11/2016 Echocardiogram Report REFERRING PHYSICIAN: Dariusz Foster MD. INDICATION: Elevated BNP, edema, cardiomyopathy. DESCRIPTION: Left ventricle appears normal size and function. No wall motion abnormalities are seen. Estimated ejection fraction is 60%. Mitral valve ECHOCARDIOGRAM REPORT [id number] MAYA OCONNELL appears structurally normal. There is no regurgitation or prolapse seen. Left atrium is normal size. The aortic valve is trileaflet. There is no stenosis or regurgitation seen. Right ventricle is mildly dilated. Tricuspid valve is structurally normal. There is mild regurgitation noted. Right ventricular systolic pressure is elevated at 31 mmHg. There is no pericardial effusion noted. IMPRESSION: 1. Normal left ventricular size and function, ejection fraction 60% with no evidence of any ventricular dilation cardiomyopathy. 2. Moderate tricuspid regurgitation. TRANSINT:[id number] Voice Confirmation ID: [id number] DOCUMENT ID: [id number] 10/25/2016 Edited to correct date of service, TATYANA Jones M.D. at 0817 CC: [id number] DICTATION DATE: 10/12/16 0750 CARD PLACER: 10/12/16 1219 DIS IN 10/12/[id number] [id number]
--- NOTE | 2016-11-10 09:40 | HP ---
PATIENT: MAYA CHRISTIANSON MEDICAL RECORD: [id number] ACCOUNT: [id number] LOCATION:[address] : [birth year] ADMISSION DATE: 10/10/16 HISTORY AND PHYSICAL EXAMINATION DATE OF ADMISSION: 10/10/2016. HISTORY OF PRESENT ILLNESS: I failed to do the history and physical for Mrs. Christianson yesterday. I had a doctor's appointment and frankly, I just forgot. The patient contacted me by phone. She was complaining of back pain. She is complaining of swelling as well as weight gain and bloating. This made me concerned that she might have nephrosis. She has had a history of malaise, arthralgias and she states her father had lupus. I would like to have strip stamp straightener see her, specifically Dr. Lyman, as she may have rheumatologic disorder. I also wanted Dr. Xiong from the infectious disease department to see her because she does have frequent headaches. She has a device implanted and then had a brow lift and subsequent infection and I want to make sure that we do not have a problem with infection of this electrical stimulator, which helps with the headaches. The patient has frequent headaches. It would not be out of the realm of possibility that she could have Lyme disease or some other type of occult disease process. She gets her medical care from a number of different practitioners. She goes to a number of different hospitals as well. I told her that my recommendation would be that we get a primary care physician here in town. That is going to be Dr. Calvillo. He can better coordinate her care. I am afraid that with her going to different cities and being seen at different facilities that she may have duplication of medical care and medical tests that perhaps we can avoid if we have 1 person that is the captain of the ship, namely Dr. Calvillo. The patient underwent an abdominal ultrasound. It revealed a prior cholecystectomy. No other acute intra-abdominal pathology was noted. No ascites. The patient has been complaining of fatigue lately as well as poor sleep. From Dr. Lyman's note, he mentioned her persistent low back discomfort and bilateral paraspinal tenderness. She had a positive point count and tender costochondral junctions compatible with fibromyalgia. Laboratory tests are pending. The patient is to be dismissed home and follow up with Dr. Lyman as an outpatient. He has recommended Flexeril, heat, mobilization and Cymbalta and liminating her narcotic analgesics. PAST MEDICAL AND SURGICAL HISTORY: Cholecystectomy, hysterectomy, abdominoplasty and longstanding migraines. She had an Shepherd procedure performed in [place]. It is a vagal nerve stimulator to reduce headaches. She had a cardiomyopathy. SOCIAL HISTORY: Does not drink, does not smoke. FAMILY HISTORY: Father had lupus-like illness. REVIEW OF SYSTEMS: She has not had Raynaud's, photosensitivity, alopecia, pleural effusion, pericarditis, TIA, stroke, DVT, bleeding or clotting disorders or focal muscle weakness. She admits to some depression as well as IBS. REVIEW OF SYSTEMS: As described above, otherwise negative. PHYSICAL EXAMINATION: GENERAL: The patient does not appear acutely ill. She does not appear chronically ill. HISTORY AND PHYSICAL [id number] MAYA CHRISTIANSON VITAL SIGNS: Reviewed. The entire physical examination was performed in the presence of a female nurse. HEAD: External ears appear normal. EYES: Extraocular movements are intact. NECK: Trachea is midline. CHEST: No intercostal retractions. PULMONARY: Nonlabored, no stridor. ABDOMEN: No peritonitis with movement. EXTREMITIES: No peripheral cyanosis. INTEGUMENT: No rash, no ulcerations. PSYCHIATRIC: Normal affect. NEUROLOGIC: Nonfocal, no lethargy. The patient answers questions appropriately, moves all extremities well. BACK: No thoracic kyphosis. LYMPHATICS: No lymphangitic streaking of the exposed extremities. IMPRESSION: 1. Anxiety. 2. Depression. 3. Bloating. 4. Irritable bowel syndrome. 5. Reported dramatic weight gain. 6. Frequent headaches. 7. New diagnosis of fibromyalgia. 8. Fatigue. PLAN: She has undergone an echocardiogram today. Once we receive the results of echocardiogram, I think that she can be dismissed home with followups with the appropriate physicians. TRANSINT:[id number] Voice Confirmation ID: [id number] DOCUMENT ID: [id number] KELLE TUCKER MD at 0940 CC: [id number] DICTATION DATE: 10/11/16 1700 MAINTENANCE PARTS TECHNICIAN: 10/11/16 1811 DIS IN 10/12/[id number] [place] [address]
== END 2016-10-12 14:00 | disposition home or self-care (01) ==
LOC: D.SDCHOLD 08:23 → OBSVTIME 08:23 → D.M2 08:23 → D.SDCHOLD 08:23 → D.M2 08:28
PROVIDERS: Internal Medicine Nephrology; Student in an Organized Health Care Education/Training Program; ADMIT Surgery
DX: R60.9 Edema, unspecified (principal); F41.9 Anxiety disorder, unspecified; F32.9 Major depressive disorder, single episode, unspecified; M79.7 Fibromyalgia; I10 Essential (primary) hypertension; S39.012A Strain of muscle, fascia and tendon of lower back, initial encounter; X58.XXXA Exposure to other specified factors, initial encounter; I07.1 Rheumatic tricuspid insufficiency; K58.9 Irritable bowel syndrome, unspecified; G43.909 Migraine, unspecified, not intractable, without status migrainosus

== ENCOUNTER 2016-10-21 23:14 | Emergency (ER) | payer BC ==
[2016-10-11 10:41] VITALS: BMI 23.9
[~2016-10-21 23:14] MED LIST changes: +CYCLOBENZAPRINE10 MG PO; +HYDROCODONE-APA1 TAB PO; +XANAX2 MG PO
== END 2016-10-22 01:32 | disposition home or self-care (01) ==
LOC: D.ER 23:14
DX: G43.909 Migraine, unspecified, not intractable, without status migrainosus (principal)

== ENCOUNTER 2016-12-04 18:24 | Emergency (ER) | payer BC ==
[2016-10-11 10:41] VITALS: BMI 23.9
== END 2016-12-04 22:44 | disposition home or self-care (01) ==
LOC: D.ER 18:24
DX: G43.909 Migraine, unspecified, not intractable, without status migrainosus (principal)

== ENCOUNTER 2016-12-07 23:42 | Observation (INO) | payer BC ==
[2016-12-08 01:43] LABS: BASOPHILS 0.4 % (0-2); EOSINOPHILS 3.3 % (0-7); HEMATOCRIT 36.1 % (36.0-48.0); HEMOGLOBIN 12.2 g/dL (12-16); IMMATURE GRANULOCYTES 0.2 % (0-5); LYMPHOCYTES 60.4 % (15-50); MCHC 33.8 g/dL (31.0-37.0); MCV 94.8 fL (80.0-100.0); MEAN PLATELET VOLUME 9.2 fL (7.4-10.4); MONOCYTES 6.7 % (2-11); PLATELET COUNT 178 10x3/uL (130-400); RBC 3.81 10x6/uL (4.00-5.40); WBC 5.7 10x3/uL (4.8-10.8)
[2016-12-08 02:01] LABS: CALC OSMOLALITY 289 mosm/kg (275-300); CALCIUM 8.7 mg/dL (8.5-10.1); CARBON DIOXIDE 29.2 mmol/L (21.0-32.0); CHLORIDE - SERUM 108 mmol/L (98-107); CREATININE - SERUM 0.8 mg/dL (0.6-1.3); GLUCOSE 137 mg/dL (74-106); SODIUM 145 mmol/L (136-145); UREA NITROGEN 10 mg/dL (7-18); eGFR NON AFRICAN AMERICAN 85 mL/min (90-120)
[2016-12-08 02:03] LABS: POTASSIUM - SERUM 2.8 mmol/L (3.5-5.1); TROPONIN-I < 0.017 ng/mL (0.000-0.060)
[2016-12-08] MEDS ORDERED: TOPAMAX100 MG PO (03:03)
[2016-12-09 05:32] LABS: BASOPHILS 0 % (0-2); EOSINOPHILS 0 % (0-7); HEMATOCRIT 37.5 % (36.0-48.0); HEMOGLOBIN 12.7 g/dL (12-16); IMMATURE GRANULOCYTES 0.2 % (0-5); LYMPHOCYTES 11.6 % (15-50); MCH 32.6 pg (26.0-34.0); MCHC 33.9 g/dL (31.0-37.0); MCV 96.2 fL (80.0-100.0); MEAN PLATELET VOLUME 9.8 fL (7.4-10.4); MONOCYTES 0.4 % (2-11); NEUTROPHILS 87.8 % (40-80); PLATELET COUNT 198 10x3/uL (130-400); RDW 12.2 % (11.5-14.5); WBC 5.3 10x3/uL (4.8-10.8)
[2016-12-09 06:50] LABS: MAGNESIUM - SERUM 1.7 mg/dL (1.8-2.4); POTASSIUM - SERUM 4.2 mmol/L (3.5-5.1)
[2016-12-09 07:01] LABS: PHOSPHOROUS 1.3 mg/dL (2.5-4.9)
[2016-12-09] MEDS ORDERED: ZITHROMAX250 MG PO (08:16)
[2016-12-09] MEDS ORDERED: PROAIR HFA8.5 GM INH (08:18)
[2016-12-09] MEDS ORDERED: MEDROL DOSE PACK4 MG PO (08:19)
[2016-12-09] MEDS ORDERED: BENZONATATE200 MG PO (08:20)
[2016-12-09] MEDS ORDERED: ALBUTEROL2.5 MG/3 M INH (10:10)
[2016-12-09] MEDS ORDERED: BREO ELLIPTA 21 EACH ×2 (11:37→11:43)
[2016-12-09] MEDS ORDERED: PREDNISONE10 MG PO (11:39)
[2016-12-09] MEDS ORDERED: SINGULAIR10 MG PO (11:40)
[2016-12-09] MEDS ORDERED: MUCINEX DM ER1 EAC1 PO (11:41)
[2016-12-09] MEDS ORDERED: OMEPRAZOLE40 MG PO (11:41)
[2016-12-09] MEDS ORDERED: PROMETHAZINE W473 M1 PO (11:42)
== END 2016-12-09 13:00 | disposition home or self-care (01) ==
LOC: D.ER 23:42 → D.MS 12-08 02:32
PROVIDERS: Emergency Medicine; Internal Medicine Pulmonary Disease; ADMIT Family Medicine
DX: R05 Cough (principal); R07.9 Chest pain, unspecified; E87.6 Hypokalemia; I10 Essential (primary) hypertension; F32.9 Major depressive disorder, single episode, unspecified; I95.9 Hypotension, unspecified; K21.9 Gastro-esophageal reflux disease without esophagitis

== ENCOUNTER 2016-12-17 21:13 | Emergency (ER) | payer BC ==
[2016-12-08 03:07] VITALS: BMI 21.3
[~2016-12-17 21:13] MED LIST changes: +ALBUTEROL2.5 MG/3 M INH; +BENZONATATE200 MG PO; +BREO ELLIPTA 21 EACH; +MEDROL DOSE PACK4 MG PO; +MUCINEX DM ER1 EAC1 PO; +OMEPRAZOLE40 MG PO; +PREDNISONE10 MG PO; +PROAIR HFA8.5 GM INH; +PROMETHAZINE W473 M1 PO; +SINGULAIR10 MG PO; +ZITHROMAX250 MG PO
== END 2016-12-18 00:13 | disposition home or self-care (01) ==
LOC: D.ER 21:13
DX: G43.909 Migraine, unspecified, not intractable, without status migrainosus (principal)

== ENCOUNTER 2016-12-24 20:32 | Emergency (ER) | payer BC ==
[2016-12-08 03:07] VITALS: BMI 21.3
== END 2016-12-24 22:47 | disposition home or self-care (01) ==
LOC: D.ER 20:32
DX: G43.909 Migraine, unspecified, not intractable, without status migrainosus (principal)

== ENCOUNTER 2017-01-02 16:17 | Emergency (ER) | payer BC ==
[2016-12-08 03:07] VITALS: BMI 21.3
== END 2017-01-02 21:04 | disposition home or self-care (01) ==
LOC: D.ER 16:17
DX: G43.909 Migraine, unspecified, not intractable, without status migrainosus (principal)

== ENCOUNTER 2017-01-04 22:15 | Emergency (ER) | payer BC ==
[2016-12-08 03:07] VITALS: BMI 21.3
== END 2017-01-04 23:15 | disposition left against medical advice (07) ==
LOC: D.ER 22:15
DX: J45.909 Unspecified asthma, uncomplicated (principal)

== ENCOUNTER 2017-01-29 21:21 | Emergency (ER) | payer BC ==
[2016-12-08 03:07] VITALS: BMI 21.3
== END 2017-01-30 03:06 | disposition home or self-care (01) ==
LOC: D.ER 21:21
DX: R51 Headache (principal)

== ENCOUNTER 2017-01-31 02:00 | Emergency (ER) | payer BC ==
[2016-12-08 03:07] VITALS: BMI 21.3
== END 2017-01-31 02:57 | disposition home or self-care (01) ==
LOC: D.ER 02:00
DX: R51 Headache (principal)

== ENCOUNTER 2017-02-18 20:46 | Emergency (ER) | payer BC ==
[2016-12-08 03:07] VITALS: BMI 21.3
== END 2017-02-18 23:32 | disposition home or self-care (01) ==
LOC: D.ER 20:46
DX: G43.909 Migraine, unspecified, not intractable, without status migrainosus (principal)

== ENCOUNTER 2017-02-21 11:36 | Emergency (ER) | payer BC ==
[2016-12-08 03:07] VITALS: BMI 21.3
== END 2017-02-21 14:21 | disposition home or self-care (01) ==
LOC: D.ER 11:36
DX: T78.40XA Allergy, unspecified, initial encounter (principal); X58.XXXA Exposure to other specified factors, initial encounter

== ENCOUNTER 2017-02-26 10:12 | Emergency (ER) | payer BC ==
[2016-12-08 03:07] VITALS: BMI 21.3
[2017-02-26 11:16] LABS: BASOPHILS 0.1 % (0-2); EOSINOPHILS 0.5 % (0-7); HEMATOCRIT 45.7 % (36.0-48.0); HEMOGLOBIN 15.4 g/dL (12-16); IMMATURE GRANULOCYTES 0.5 % (0-5); LYMPHOCYTES 25.7 % (15-50); MCH 32.9 pg (26.0-34.0); MCHC 33.7 g/dL (31.0-37.0); MCV 97.6 fL (80.0-100.0); MEAN PLATELET VOLUME 9.2 fL (7.4-10.4); MONOCYTES 4.4 % (2-11); NEUTROPHILS 68.8 % (40-80); RBC 4.68 10x6/uL (4.00-5.40); RDW 12.7 % (11.5-14.5); WBC 9.2 10x3/uL (4.8-10.8)
[2017-02-26 11:17] LABS: PLATELET COUNT 268 10x3/uL (130-400)
[2017-02-26 11:30] LABS: ALBUMIN 4.3 g/dL (3.4-5.0); ALKALINE PHOSPHATASE 87 U/L (46-116); ALT (SGPT) 36 U/L (10-68); AMYLASE - SERUM 54 U/L (25-115); BILIRUBIN - TOTAL 0.42 mg/dL (0.2-1.3); CALC OSMOLALITY 271 mosm/kg (275-300); CHLORIDE - SERUM 96 mmol/L (98-107); CREATININE - SERUM 0.7 mg/dL (0.6-1.3); GLUCOSE 116 mg/dL (74-106); LIPASE 192 U/L (73-393); POTASSIUM - SERUM 3.7 mmol/L (3.5-5.1); PROTEIN - SERUM 7.9 g/dL (6.4-8.2); SODIUM 135 mmol/L (136-145); UREA NITROGEN 16 mg/dL (7-18); eGFR NON AFRICAN AMERICAN > 90 mL/min (90-120)
== END 2017-02-26 13:31 | disposition home or self-care (01) ==
LOC: D.ER 10:12
PROVIDERS: Emergency Medicine
DX: R11.10 Vomiting, unspecified (principal); G43.909 Migraine, unspecified, not intractable, without status migrainosus

== ENCOUNTER 2017-03-02 19:20 | Emergency (ER) | payer BC ==
[2016-12-08 03:07] VITALS: BMI 21.3
== END 2017-03-02 20:47 | disposition home or self-care (01) ==
LOC: D.ER 19:20
DX: R11.2 Nausea with vomiting, unspecified (principal); A08.4 Viral intestinal infection, unspecified

== ENCOUNTER 2017-03-29 22:24 | Emergency (ER) | payer BC ==
[2016-12-08 03:07] VITALS: BMI 21.3
== END 2017-03-30 00:31 | disposition home or self-care (01) ==
LOC: D.ER 22:24
DX: R51 Headache (principal)

== ENCOUNTER 2017-03-31 22:59 | Emergency (ER) | payer BC ==
[2016-12-08 03:07] VITALS: BMI 21.3
== END 2017-04-01 01:09 | disposition home or self-care (01) ==
LOC: D.ER 22:59
DX: G43.909 Migraine, unspecified, not intractable, without status migrainosus (principal); K08.89 Other specified disorders of teeth and supporting structures

== ENCOUNTER 2017-04-13 20:48 | Emergency (ER) | payer BC ==
[2016-12-08 03:07] VITALS: BMI 21.3
== END 2017-04-13 23:00 | disposition home or self-care (01) ==
LOC: D.ER 20:48
DX: S93.401A Sprain of unspecified ligament of right ankle, initial encounter (principal); X58.XXXA Exposure to other specified factors, initial encounter; Y93.89 Activity, other specified; Y92.89 Other specified places as the place of occurrence of the external cause

== ENCOUNTER 2017-04-27 17:57 | Emergency (ER) | payer BC ==
[2016-12-08 03:07] VITALS: BMI 21.3
== END 2017-04-27 20:46 | disposition home or self-care (01) ==
LOC: D.ER 17:57
DX: G43.909 Migraine, unspecified, not intractable, without status migrainosus (principal)

== ENCOUNTER 2017-04-28 20:46 | Emergency (ER) | payer BC | END 2017-04-28 21:30 | disposition home or self-care (01) | LOC: D.ER 20:46 | DX: G43.909 Migraine, unspecified, not intractable, without status migrainosus (principal) ==

== ENCOUNTER 2017-05-05 22:43 | Emergency (ER) | payer BC ==
[2016-12-08 03:07] VITALS: BMI 21.3
== END 2017-05-06 00:12 | disposition home or self-care (01) ==
LOC: D.ER 22:43
DX: J45.901 Unspecified asthma with (acute) exacerbation (principal)

== ENCOUNTER 2017-05-06 11:24 | Emergency (ER) | payer BC ==
[2016-12-08 03:07] VITALS: BMI 21.3
== END 2017-05-06 12:56 | disposition home or self-care (01) ==
LOC: D.ER 11:24
DX: G43.909 Migraine, unspecified, not intractable, without status migrainosus (principal); J45.909 Unspecified asthma, uncomplicated

== ENCOUNTER → 2017-05-07 | Emergency (ER) | payer BC ==
[2016-12-08 03:07] VITALS: BMI 21.3
== END | disposition home or self-care (01) ==
LOC: D.ER 20:40
DX: J45.901 Unspecified asthma with (acute) exacerbation (principal); F41.0 Panic disorder [episodic paroxysmal anxiety]; Z86.59 Personal history of other mental and behavioral disorders

== ENCOUNTER 2017-05-11 11:51 | Emergency (ER) | payer BC ==
[2016-12-08 03:07] VITALS: BMI 21.3
== END 2017-05-11 14:19 | disposition home or self-care (01) ==
LOC: D.ER 11:51
DX: R51 Headache (principal)

== ENCOUNTER 2017-05-12 16:50 | Inpatient (IN) | payer BC ==
[2017-05-12 18:38] LABS: BASOPHILS 0.1 % (0-2); EOSINOPHILS 2.8 % (0-7); HEMATOCRIT 39.5 % (36.0-48.0); HEMOGLOBIN 13.4 g/dL (12-16); IMMATURE GRANULOCYTES 0.1 % (0-5); LYMPHOCYTES 31.9 % (15-50); MCH 32.5 pg (26.0-34.0); MCHC 33.9 g/dL (31.0-37.0); MCV 95.9 fL (80.0-100.0); MEAN PLATELET VOLUME 9.1 fL (7.4-10.4); MONOCYTES 5.4 % (2-11); NEUTROPHILS 59.7 % (40-80); PLATELET COUNT 236 10x3/uL (130-400); RBC 4.12 10x6/uL (4.00-5.40); RDW 12.2 % (11.5-14.5); WBC 7.3 10x3/uL (4.8-10.8)
[2017-05-12 18:43] LABS: CALC OSMOLALITY 285 mosm/kg (275-300); CALCIUM 8.7 mg/dL (8.5-10.1); CARBON DIOXIDE 28.4 mmol/L (21.0-32.0); CHLORIDE - SERUM 106 mmol/L (98-107); CREATININE - SERUM 0.8 mg/dL (0.6-1.3); GLUCOSE 105 mg/dL (74-106); POTASSIUM - SERUM 3.5 mmol/L (3.5-5.1); SODIUM 143 mmol/L (136-145); UREA NITROGEN 14 mg/dL (7-18); eGFR NON AFRICAN AMERICAN 84 mL/min (90-120)
--- NOTE | 2017-05-12 19:20 | NUR ---
PATIENT RESTING IN BED WITH NO VISIBLE SIGNS OF DISTRESS. PATIENT IS UPSET THAT THE ER DOC ORDERED TORADOL FOR PAIN. I EXPLAINED TO THE PATIENT IF THE TORADOL DID NOT WORK WE WOULD CONTACT THE DR. BROUGHT PATIENT A DRINK PER HER REQUEST. PATIENT DENIES OTHER NEEDS AT THIS TIME. BED IN LOWEST POSITION AND CALL LIGHT WITHIN REACH. ENCOURAGED THE PATIENT TO CALL IF SHE HAS NEEDS.
[2017-05-12 20:00] VITALS: BP 112/69
--- NOTE | 2017-05-12 20:36 | NUR ---
NOTIFIED DR. BRYANT THAT DR. MOORE HAS PUT HIM IN A CONSULT ON THE PATIENT. DR. BRYANT STATED HE WILL SEE THE PT IN THE MORNING.
[2017-05-13] VITALS (7 sets, daily range): BP systolic 100–136; BP diastolic 63–81; BMI 22.1
--- NOTE | 2017-05-13 07:00 | NUR ---
REPORT RECEIVED, ASSUMED CARE OF PT. PT C/O MARX 03/22, PRN DEMEROL GIVEN ORDERED. NO OTHER COMPLAINTS AT THIS TIME. R HAND IV INFUSING FLUIDS ORDERED, PATENT, RAMIREZ C/D/I. BED IN LOWEST POSTIION, SIDE RAILS UP X 2, CALL LIGHT WITHIN REACH.
--- NOTE | 2017-05-13 21:35 | NUR ---
REC'D LYING IN BED. ALERT AND ORIENTED X4. REPORTED PAIN 8/10. WILL ADMIN PAIN MEDS PRESCRIBED. DENIED NEEDS AT THIS TIME. INSTRUCTED TO CALL IF NEEDED ANYTHING, VERBALIZED UNDERSTANDING. WILL CONT TO MONITOR. NOT DISTRESS NOTED. BED LOW, LOCKED, CALL LIGHT IN REACH.
[2017-05-14] VITALS: BP 102/67
[2017-05-14 04:00] VITALS: BP 96/63
--- NOTE | 2017-05-14 04:41 | NUR ---
RESTING QUIETLY, EYES CLOSED. RESP EVEN, UNLABORED. NO DISTRESS NOTED. CONTINUE MANAGER MOTOR'S PLAN OF CARE.
--- NOTE | 2017-05-14 07:30 | NUR ---
PT AA&O. REPORTS PAIN 8/10 ON HER HEAD. CONSTANT AND THROBBING. HAD R-HAND PERIPHERAL IV WITH NS INFUSING AT 125ML/HR. ON ROOM AIR. CURRENTLY IN BED.
[2017-05-14 08:35] VITALS: BP 95/56
[2017-05-14 10:54] LABS: BASOPHILS 0.2 % (0-2); EOSINOPHILS 5.8 % (0-7); HEMATOCRIT 40.5 % (36.0-48.0); HEMOGLOBIN 13.5 g/dL (12-16); IMMATURE GRANULOCYTES 0.4 % (0-5); LYMPHOCYTES 48.9 % (15-50); MCH 32.1 pg (26.0-34.0); MCHC 33.3 g/dL (31.0-37.0); MCV 96.2 fL (80.0-100.0); MEAN PLATELET VOLUME 9.3 fL (7.4-10.4); MONOCYTES 6.2 % (2-11); NEUTROPHILS 38.5 % (40-80); RBC 4.21 10x6/uL (4.00-5.40); RDW 12.3 % (11.5-14.5); WBC 5.5 10x3/uL (4.8-10.8)
[2017-05-14 10:55] LABS: PLATELET COUNT 179 10x3/uL (130-400)
[2017-05-14 11:08] LABS: ALBUMIN 3.4 g/dL (3.4-5.0); ANION GAP 13.8 mmol/L (8-16); BILIRUBIN - TOTAL 0.1 mg/dL (0.2-1.3); CALCIUM 8.6 mg/dL (8.5-10.1); CARBON DIOXIDE 21.5 mmol/L (21.0-32.0); CREATININE - SERUM 0.9 mg/dL (0.6-1.3); POTASSIUM - SERUM 3.3 mmol/L (3.5-5.1)
[2017-05-14 12:29] VITALS: BP 101/62
--- NOTE | 2017-05-14 14:16 | NUR ---
PT RESTING COMFORTABLY. APPEARS TO BE SLEEPING. NO NEEDS AT THIS TIME.
--- NOTE | 2017-05-14 14:28 | NUR ---
Patient Name: MAYA OCONNELL Admission Status: ER Accout number: [id number] Admission Date: 05-13-2017 : 1975 Admission Diagnosis: Attending: FOX, Current LOS: 1 Anticipated DC Date: 05-15-2017 Planned Disposition: Home Primary Insurance: [employer] TRUE BLUE PPO Discharge Planning Comments: CM MET WITH PATIENT REGARDING D/C NEEDS AND PLANS. PATIENT STATED SHE LIVES AT HOME WITH HER SPOUSE AND HE WILL DRIVE HER HOME AT DISCHARGE. PATIENT HAS NO STEPS TO ENTER HOME AND 2 STAIRCASES W/RAILS INSIDE. PATIENT STATED SHE IS INDEPENDENT WITH HER CARE AND HAS NO DME AT HOME. PATIENTS PCP IS DR. MOORE AND PHARMACY IS [facility]. PATIENT DOES NOT WANT HOME HEALTH. CM WILL CONTINUE TO FOLLOW PATIENT WITH DC NEEDS AND PLANS. PCP DR. [facility]- [phone] ENEDELIA (SPOUSE) [phone] Children'S Tutor: [place] Is the patient Alert and Oriented? Yes 0 * How many steps to enter\exit or inside your home? 2 STAIRCAS 0 * PCP DR. MOORE 0 * [facility] 0 * Preadmission Environment Home with Family 0 * ADLs Independent 0 * Equipment None 0 * List name and contact numbers for known caregivers / representatives who currently or will assist patient after discharge: ENEDELIA (SPOUSE) [phone] 0 * Community resources currently utilized None 0 * Additional services required to return to the preadmission environment? Yes 0 * Can the patient safely return to the preadmission environment? Yes 0 * Has this patient been hospitalized within the prior 30 days at any hospital? No 0 Grand Total: 0
[2017-05-14 16:16] VITALS: BP 104/66
--- NOTE | 2017-05-14 19:25 | NUR ---
RIGHT HAND PERIPHERAL IV DISCONTINUED. NOT WORKING PROPERLY. 22 GAUGE PERIPHERAL IV INSERTED X 3 ATTEMPS ON R-AC. PT TOLERATED WELL. PT RATES HEADACHE 03/22. CAL GIVE DIALAUDID.
[2017-05-14 20:00] VITALS: BP 109/59
--- NOTE | 2017-05-14 20:30 | NUR ---
PATIENT RESING IN BED WITH NO SIGNS OF DISTRESS AND REQUESTED HER PAIN MEDICATION WHEN IT IS DUE. BED IN LOWEST POSITION AND CALL LIGHT WITHIN REACH. ENCOURAGED THE PATIENT TO CALL IF SHE HAS NEEDS.
[2017-05-15] VITALS: BP 116/70
[2017-05-15 04:54] LABS: BASOPHILS 0.3 % (0-2); EOSINOPHILS 5.4 % (0-7); HEMATOCRIT 37.4 % (36.0-48.0); HEMOGLOBIN 12.9 g/dL (12-16); IMMATURE GRANULOCYTES 0.5 % (0-5); LYMPHOCYTES 48.3 % (15-50); MCH 32.9 pg (26.0-34.0); MCHC 34.5 g/dL (31.0-37.0); MCV 95.4 fL (80.0-100.0); MEAN PLATELET VOLUME 9.3 fL (7.4-10.4); MONOCYTES 6.7 % (2-11); NEUTROPHILS 38.8 % (40-80); PLATELET COUNT 193 10x3/uL (130-400); RBC 3.92 10x6/uL (4.00-5.40); RDW 12.4 % (11.5-14.5); WBC 6.1 10x3/uL (4.8-10.8)
[2017-05-15 05:04] LABS: ALBUMIN 2.9 g/dL (3.4-5.0); ANION GAP 11.8 mmol/L (8-16); BILIRUBIN - TOTAL 0.13 mg/dL (0.2-1.3); CARBON DIOXIDE 23.6 mmol/L (21.0-32.0); CREATININE - SERUM 0.9 mg/dL (0.6-1.3); POTASSIUM - SERUM 3.4 mmol/L (3.5-5.1); PROTEIN - SERUM 5.5 g/dL (6.4-8.2)
[2017-05-15 05:39] VITALS: BP 98/59
[2017-05-15 08:52] VITALS: BP 93/57
[2017-05-15] MEDS ORDERED: DEPAKOTE500 MG PO (09:56)
[2017-05-15] MEDS ORDERED: Topamax PO ×2 (09:57)
[2017-05-15] MEDS ORDERED: COLACE100 MG PO (09:57)
--- NOTE | 2017-05-15 10:14 | NUR ---
CM REASSESSMENT NOTE: PATIENT IS DISCHARGING HOME TODAY WITH NO NEEDS. PATIENT REFUSED HOME HEALTH. FAMILY DRIVING HER HOME.
== END 2017-05-15 11:30 | disposition home or self-care (01) | DRG 103 ==
LOC: D.ER 16:50 → D.MS 18:25 → OBSVTIME 18:25 → D.MS 05-13 22:41
PROVIDERS: Emergency Medicine; Family Medicine; ADMIT Family Medicine
DX: G43.901 Migraine, unspecified, not intractable, with status migrainosus (principal); I10 Essential (primary) hypertension

== ENCOUNTER 2017-05-19 01:07 | Emergency (ER) | payer BC ==
[2017-05-13 03:02] VITALS: BMI 22.1
[~2017-05-19 01:07] MED LIST changes: +Topamax PO
== END 2017-05-19 03:11 | disposition home or self-care (01) ==
LOC: D.ER 01:07
DX: G43.909 Migraine, unspecified, not intractable, without status migrainosus (principal)

== ENCOUNTER 2017-05-19 19:19 | Emergency (ER) | payer BC ==
[2017-05-13 03:02] VITALS: BMI 22.1
== END 2017-05-19 23:11 | disposition home or self-care (01) ==
LOC: D.ER 19:19
DX: G43.909 Migraine, unspecified, not intractable, without status migrainosus (principal)

== ENCOUNTER 2017-05-23 16:13 | Emergency (ER) | payer BC ==
[2017-05-13 03:02] VITALS: BMI 22.1
== END 2017-05-23 17:45 | disposition home or self-care (01) ==
LOC: D.ER 16:13
DX: G43.909 Migraine, unspecified, not intractable, without status migrainosus (principal)

== ENCOUNTER 2017-05-24 22:49 | Emergency (ER) | payer BC ==
[2017-05-13 03:02] VITALS: BMI 22.1
== END 2017-05-24 23:41 | disposition home or self-care (01) ==
LOC: D.ER 22:49
DX: G43.909 Migraine, unspecified, not intractable, without status migrainosus (principal)

== ENCOUNTER 2017-05-27 06:44 | Emergency (ER) | payer BC ==
[2017-05-13 03:02] VITALS: BMI 22.1
== END 2017-05-27 08:05 | disposition home or self-care (01) ==
LOC: D.ER 06:44
DX: R51 Headache (principal)

== ENCOUNTER 2017-06-12 17:22 | Emergency (ER) | payer BC ==
[2017-05-13 03:02] VITALS: BMI 22.1
== END 2017-06-12 18:13 | disposition home or self-care (01) ==
LOC: D.ER 17:22
DX: G43.909 Migraine, unspecified, not intractable, without status migrainosus (principal)

== ENCOUNTER 2017-06-14 21:04 | Emergency (ER) | payer BC ==
[2017-05-13 03:02] VITALS: BMI 22.1
== END 2017-06-14 22:07 | disposition home or self-care (01) ==
LOC: D.ER 21:04
DX: G43.909 Migraine, unspecified, not intractable, without status migrainosus (principal)

== ENCOUNTER 2017-06-16 01:57 | Emergency (ER) | payer BC ==
[2017-05-13 03:02] VITALS: BMI 22.1
== END 2017-06-16 02:50 | disposition home or self-care (01) ==
LOC: D.ER 01:57
DX: G43.909 Migraine, unspecified, not intractable, without status migrainosus (principal)

== ENCOUNTER 2017-06-17 14:27 | Emergency (ER) | payer BC ==
[2017-05-13 03:02] VITALS: BMI 22.1
== END 2017-06-17 17:15 | disposition home or self-care (01) ==
LOC: D.ER 14:27
DX: R51 Headache (principal); Z76.5 Malingerer [conscious simulation]

== ENCOUNTER 2017-06-25 20:28 | Emergency (ER) | payer BC ==
[2017-05-13 03:02] VITALS: BMI 22.1
== END 2017-06-25 21:28 | disposition home or self-care (01) ==
LOC: D.ER 20:28
DX: G43.909 Migraine, unspecified, not intractable, without status migrainosus (principal)

== ENCOUNTER 2017-06-28 16:10 | Emergency (ER) | payer BC ==
[2017-05-13 03:02] VITALS: BMI 22.1
== END 2017-06-28 18:30 | disposition home or self-care (01) ==
LOC: D.ER 16:10
DX: G43.909 Migraine, unspecified, not intractable, without status migrainosus (principal)

== ENCOUNTER 2017-07-02 02:42 | Emergency (ER) | payer BC ==
[2017-05-13 03:02] VITALS: BMI 22.1
== END 2017-07-02 03:45 | disposition home or self-care (01) ==
LOC: D.ER 02:42
DX: R51 Headache (principal)

== ENCOUNTER 2017-07-10 20:12 | Emergency (ER) | payer BC ==
[2017-05-13 03:02] VITALS: BMI 22.1
== END 2017-07-10 22:34 | disposition home or self-care (01) ==
LOC: D.ER 20:12
DX: G43.909 Migraine, unspecified, not intractable, without status migrainosus (principal)

== ENCOUNTER 2017-07-11 17:32 | Emergency (ER) | payer BC ==
[2017-05-13 03:02] VITALS: BMI 22.1
== END 2017-07-11 20:22 | disposition home or self-care (01) ==
LOC: D.ER 17:32
DX: G43.909 Migraine, unspecified, not intractable, without status migrainosus (principal)

== ENCOUNTER 2017-07-13 02:23 | Emergency (ER) | payer BC ==
[2017-05-13 03:02] VITALS: BMI 22.1
== END 2017-07-13 03:18 | disposition home or self-care (01) ==
LOC: D.ER 02:23
DX: R51 Headache (principal)

== ENCOUNTER 2017-07-17 22:18 | Emergency (ER) | payer BC ==
[2017-05-13 03:02] VITALS: BMI 22.1
== END 2017-07-17 23:40 | disposition home or self-care (01) ==
LOC: D.ER 22:18
DX: G43.909 Migraine, unspecified, not intractable, without status migrainosus (principal)

== ENCOUNTER 2017-07-22 18:24 | Emergency (ER) | payer BC ==
[2017-05-13 03:02] VITALS: BMI 22.1
== END 2017-07-22 20:10 | disposition home or self-care (01) ==
LOC: D.ER 18:24
DX: S29.012A Strain of muscle and tendon of back wall of thorax, initial encounter (principal); X50.0XXA Overexertion from strenuous movement or load, initial encounter; Y93.89 Activity, other specified; Y92.89 Other specified places as the place of occurrence of the external cause; M62.838 Other muscle spasm; G47.00 Insomnia, unspecified

== ENCOUNTER 2017-07-26 14:44 | Emergency (ER) | payer BC ==
[2017-05-13 03:02] VITALS: BMI 22.1
== END 2017-07-26 17:07 | disposition home or self-care (01) ==
LOC: D.ER 14:44
DX: G43.909 Migraine, unspecified, not intractable, without status migrainosus (principal)

== ENCOUNTER 2017-08-02 05:01 | Emergency (ER) | payer BC ==
[2017-05-13 03:02] VITALS: BMI 22.1
== END 2017-08-02 05:46 | disposition home or self-care (01) ==
LOC: D.ER 05:01
DX: R51 Headache (principal)

== ENCOUNTER 2017-08-28 19:41 | Emergency (ER) | payer BC ==
[2017-05-13 03:02] VITALS: BMI 22.1
== END 2017-08-28 20:55 | disposition home or self-care (01) ==
LOC: D.ER 19:41
DX: G43.909 Migraine, unspecified, not intractable, without status migrainosus (principal)

== ENCOUNTER 2017-08-29 10:05 | Emergency (ER) | payer BC ==
[2017-05-13 03:02] VITALS: BMI 22.1
== END 2017-08-29 11:54 | disposition home or self-care (01) ==
LOC: D.ER 10:05
DX: G43.909 Migraine, unspecified, not intractable, without status migrainosus (principal)

== ENCOUNTER 2017-08-30 02:30 | Emergency (ER) | payer BC ==
[2017-05-13 03:02] VITALS: BMI 22.1
== END 2017-08-30 02:45 | disposition left against medical advice (07) ==
LOC: D.ER 02:30
DX: R05 Cough (principal)

== ENCOUNTER 2017-08-31 22:52 | Emergency (ER) | payer BC ==
[2017-05-13 03:02] VITALS: BMI 22.1
== END 2017-08-31 23:49 | disposition home or self-care (01) ==
LOC: D.ER 22:52
DX: G43.909 Migraine, unspecified, not intractable, without status migrainosus (principal)

== ENCOUNTER 2017-09-02 15:50 | Emergency (ER) | payer BC ==
[2017-05-13 03:02] VITALS: BMI 22.1
== END 2017-09-02 22:17 | disposition home or self-care (01) ==
LOC: D.ER 15:50
DX: R51 Headache (principal)

== ENCOUNTER 2017-09-02 20:46 | Emergency (ER) | payer BC ==
[2017-05-13 03:02] VITALS: BMI 22.1
== END 2017-09-02 21:55 | disposition home or self-care (01) ==
LOC: D.ER 20:46
DX: G43.909 Migraine, unspecified, not intractable, without status migrainosus (principal)

== ENCOUNTER 2017-09-08 21:39 | Emergency (ER) | payer BC ==
[2017-05-13 03:02] VITALS: BMI 22.1
== END 2017-09-08 22:21 | disposition home or self-care (01) ==
LOC: D.ER 21:39
DX: G43.909 Migraine, unspecified, not intractable, without status migrainosus (principal)

== ENCOUNTER 2017-09-10 15:22 | Emergency (ER) | payer BC ==
[2017-05-13 03:02] VITALS: BMI 22.1
== END 2017-09-10 19:31 | disposition home or self-care (01) ==
LOC: D.ER 15:22
DX: G43.909 Migraine, unspecified, not intractable, without status migrainosus (principal)

== ENCOUNTER 2017-09-17 07:42 | Emergency (ER) | payer BC ==
[2017-05-13 03:02] VITALS: BMI 22.1
== END 2017-09-17 08:11 | disposition left against medical advice (07) ==
LOC: D.ER 07:42
DX: G43.909 Migraine, unspecified, not intractable, without status migrainosus (principal)

== ENCOUNTER 2017-10-02 00:44 | Emergency (ER) | payer BC ==
[2017-05-13 03:02] VITALS: BMI 22.1
== END 2017-10-02 01:25 | disposition home or self-care (01) ==
LOC: D.ER 00:44
DX: G43.909 Migraine, unspecified, not intractable, without status migrainosus (principal)

== ENCOUNTER 2017-10-12 20:51 | Emergency (ER) | payer BC ==
[2017-05-13 03:02] VITALS: BMI 22.1
== END 2017-10-12 22:33 | disposition home or self-care (01) ==
LOC: D.ER 20:51
DX: G43.909 Migraine, unspecified, not intractable, without status migrainosus (principal)

== ENCOUNTER 2017-10-20 05:19 | Emergency (ER) | payer BC ==
[2017-05-13 03:02] VITALS: BMI 22.1
== END 2017-10-20 08:21 | disposition home or self-care (01) ==
LOC: D.ER 05:19
DX: G43.909 Migraine, unspecified, not intractable, without status migrainosus (principal)

== ENCOUNTER 2017-11-01 19:01 | Emergency (ER) | payer BC ==
[2017-05-13 03:02] VITALS: BMI 22.1
== END 2017-11-01 21:31 | disposition home or self-care (01) ==
LOC: D.ER 19:01
DX: G43.909 Migraine, unspecified, not intractable, without status migrainosus (principal)

== ENCOUNTER 2017-11-09 00:21 | Emergency (ER) | payer BC ==
[2017-05-13 03:02] VITALS: BMI 22.1
== END 2017-11-09 01:36 | disposition home or self-care (01) ==
LOC: D.ER 00:21
DX: G43.909 Migraine, unspecified, not intractable, without status migrainosus (principal)

== ENCOUNTER 2017-11-21 11:45 | Emergency (ER) | payer BC ==
[2017-05-13 03:02] VITALS: BMI 22.1
[2017-11-21 13:31] LABS: BASOPHILS 0.3 % (0-2); EOSINOPHILS 0.6 % (0-7); HEMOGLOBIN 13.4 g/dL (12-16); IMMATURE GRANULOCYTES 0.3 % (0-5); LYMPHOCYTES 31.3 % (15-50); MCH 32.2 pg (26.0-34.0); MCHC 34.4 g/dL (31.0-37.0); MCV 93.8 fL (80.0-100.0); MEAN PLATELET VOLUME 9.5 fL (7.4-10.4); NEUTROPHILS 62.5 % (40-80); RBC 4.16 10x6/uL (4.00-5.40); RDW 12.6 % (11.5-14.5)
[2017-11-21 13:37] LABS: ALBUMIN 4.3 g/dL (3.4-5.0); ANION GAP 20.9 mmol/L (8-16); BILIRUBIN - TOTAL 0.44 mg/dL (0.2-1.3); CALCIUM 9.4 mg/dL (8.5-10.1); CREATININE - SERUM 0.9 mg/dL (0.6-1.3); POTASSIUM - SERUM 3.9 mmol/L (3.5-5.1); PROTEIN - SERUM 7.2 g/dL (6.4-8.2)
[2017-11-21 13:53] LABS: PLATELET COUNT 262 10x3/uL (130-400)
== END 2017-11-21 14:00 | disposition home or self-care (01) ==
LOC: D.ER 11:45
PROVIDERS: Emergency Medicine
DX: R09.89 Other specified symptoms and signs involving the circulatory and respiratory systems (principal); J20.9 Acute bronchitis, unspecified

== ENCOUNTER → 2017-11-22 12:56 | Outpatient (CLI) | payer BC ==
[2017-05-13 03:02] VITALS: BMI 22.1
[2017-11-23 13:18] LABS: IMMUNOGLOBULIN A 108 mg/dL (87-352); IMMUNOGLOBULIN G 615 mg/dL (700-1600); IMMUNOGLOBULIN M 68 mg/dL (26-217)
== END | disposition home or self-care (01) ==
LOC: D.RT 12:56
PROVIDERS: Internal Medicine Pulmonary Disease
DX: J45.21 Mild intermittent asthma with (acute) exacerbation (principal); D80.3 Selective deficiency of immunoglobulin G [IgG] subclasses

== ENCOUNTER 2017-11-26 22:27 | Emergency (ER) | payer BC ==
[2017-05-13 03:02] VITALS: BMI 22.1
== END 2017-11-26 23:17 | disposition home or self-care (01) ==
LOC: D.ER 22:27
DX: G43.909 Migraine, unspecified, not intractable, without status migrainosus (principal)

== ENCOUNTER 2017-11-30 20:28 | Emergency (ER) | payer BC ==
[2017-05-13 03:02] VITALS: BMI 22.1
== END 2017-12-01 00:10 | disposition home or self-care (01) ==
LOC: D.ER 20:28
DX: G43.909 Migraine, unspecified, not intractable, without status migrainosus (principal)

== ENCOUNTER 2017-12-10 04:44 | Emergency (ER) | payer BC ==
[2017-05-13 03:02] VITALS: BMI 22.1
== END 2017-12-10 05:15 | disposition home or self-care (01) ==
LOC: D.ER 04:44
DX: G43.909 Migraine, unspecified, not intractable, without status migrainosus (principal)

== ENCOUNTER 2017-12-10 19:20 | Emergency (ER) | payer BC ==
[2017-05-13 03:02] VITALS: BMI 22.1
== END 2017-12-10 21:38 | disposition home or self-care (01) ==
LOC: D.ER 19:20
DX: G43.909 Migraine, unspecified, not intractable, without status migrainosus (principal)

== ENCOUNTER 2017-12-13 01:36 | Emergency (ER) | payer BC ==
[2017-05-13 03:02] VITALS: BMI 22.1
== END 2017-12-13 02:36 | disposition home or self-care (01) ==
LOC: D.ER 01:36
DX: R51 Headache (principal)

== ENCOUNTER 2017-12-19 21:25 | Emergency (ER) | payer BC ==
[2017-05-13 03:02] VITALS: BMI 22.1
== END 2017-12-20 00:48 | disposition home or self-care (01) ==
LOC: D.ER 21:25
DX: G43.909 Migraine, unspecified, not intractable, without status migrainosus (principal)

== ENCOUNTER 2017-12-24 00:13 | Emergency (ER) | payer BC ==
[2017-05-13 03:02] VITALS: BMI 22.1
== END 2017-12-24 01:35 | disposition home or self-care (01) ==
LOC: D.ER 00:13
DX: G43.909 Migraine, unspecified, not intractable, without status migrainosus (principal)

== ENCOUNTER 2017-12-30 14:30 | Emergency (ER) | payer BC ==
[2017-05-13 03:02] VITALS: BMI 22.1
== END 2017-12-30 16:35 | disposition home or self-care (01) ==
LOC: D.ER 14:30
DX: G43.909 Migraine, unspecified, not intractable, without status migrainosus (principal)

== ENCOUNTER 2018-01-04 21:36 | Emergency (ER) | payer BC ==
[2017-05-13 03:02] VITALS: BMI 22.1
== END 2018-01-04 23:42 | disposition home or self-care (01) ==
LOC: D.ER 21:36
DX: G43.909 Migraine, unspecified, not intractable, without status migrainosus (principal)

== ENCOUNTER 2018-01-07 22:04 | Emergency (ER) | payer BC ==
[2017-05-13 03:02] VITALS: BMI 22.1
== END 2018-01-07 23:39 | disposition home or self-care (01) ==
LOC: D.ER 22:04
DX: G43.909 Migraine, unspecified, not intractable, without status migrainosus (principal)

== ENCOUNTER 2018-01-11 22:12 | Emergency (ER) | payer BC ==
[2017-05-13 03:02] VITALS: BMI 22.1
== END 2018-01-12 02:09 | disposition home or self-care (01) ==
LOC: D.ER 22:12
DX: G43.909 Migraine, unspecified, not intractable, without status migrainosus (principal)

== ENCOUNTER 2018-02-04 02:47 | Emergency (ER) | payer BC ==
[~2018-02-04] VITALS: Ht 160 cm; Wt 56.7 kg
[2018-02-04 02:54] VITALS: Ht 160 cm; Wt 56.7 kg
[2018-02-04] MEDS ORDERED: KLONOPIN1 MG PO (02:56)
[2018-02-04 03:26] VITALS: BP 144/72
== END 2018-02-04 03:27 | disposition home or self-care (01) ==
LOC: D.ER 02:47
DX: R51 Headache (principal)

== ENCOUNTER 2018-02-22 23:38 | Emergency (ER) | payer BC ==
[~2018-02-22] VITALS: Ht 160 cm; Wt 56.7 kg
[~2018-02-22 23:38] MED LIST changes: +KLONOPIN1 MG PO
[2018-02-22 23:42] VITALS: BP 123/87; Ht 160 cm; Wt 56.7 kg
== END 2018-02-23 00:11 | disposition home or self-care (01) ==
LOC: D.ER 23:38
DX: G43.909 Migraine, unspecified, not intractable, without status migrainosus (principal); I10 Essential (primary) hypertension

== ENCOUNTER 2018-02-23 21:32 | Emergency (ER) | payer BC ==
[~2018-02-23] VITALS: Ht 160 cm; Wt 56.7 kg
[2018-02-23 21:42] VITALS: BP 108/74; Ht 160 cm; Wt 56.7 kg
== END 2018-02-23 22:29 | disposition home or self-care (01) ==
LOC: D.ER 21:32
DX: G43.909 Migraine, unspecified, not intractable, without status migrainosus (principal); I10 Essential (primary) hypertension

== ENCOUNTER 2018-02-26 01:29 | Emergency (ER) | payer BC ==
[~2018-02-26] VITALS: Ht 160 cm; Wt 56.8 kg
[2018-02-26 01:44] VITALS: BP 143/83; Ht 160 cm; Wt 56.8 kg
== END 2018-02-26 03:15 | disposition home or self-care (01) ==
LOC: D.ER 01:29
DX: R51 Headache (principal)

== ENCOUNTER 2018-03-06 19:40 | Emergency (ER) | payer BC ==
[~2018-03-06] VITALS: Ht 160 cm; Wt 56.8 kg
[2018-03-06 20:04] VITALS: BP 128/83; Ht 160 cm; Wt 56.8 kg
[2018-03-06] MEDS ORDERED: STADOL NASAL S2.5 ML NASAL (20:50)
== END 2018-03-06 21:06 | disposition home or self-care (01) ==
LOC: D.ER 19:40
DX: G43.909 Migraine, unspecified, not intractable, without status migrainosus (principal)

== ENCOUNTER 2018-03-23 22:38 | Emergency (ER) | payer BC ==
[~2018-03-23] VITALS: Ht 160 cm; Wt 56.8 kg
[~2018-03-23 22:38] MED LIST changes: +STADOL NASAL S2.5 ML NASAL
[2018-03-23 22:46] VITALS: BP 126/86; Ht 160 cm; Wt 56.8 kg
== END 2018-03-23 23:51 | disposition left against medical advice (07) ==
LOC: D.ER 22:38
DX: G43.909 Migraine, unspecified, not intractable, without status migrainosus (principal)

== ENCOUNTER 2018-03-25 03:57 | Emergency (ER) | payer BC ==
[~2018-03-25] VITALS: Ht 160 cm; Wt 56.8 kg
[2018-03-25 04:06] VITALS: Ht 160 cm; Wt 56.8 kg
[2018-03-25 05:36] VITALS: BP 132/77
== END 2018-03-25 05:47 | disposition home or self-care (01) ==
LOC: D.ER 03:57
DX: R51 Headache (principal)

== ENCOUNTER 2018-03-28 22:55 | Emergency (ER) | payer BC ==
[~2018-03-28] VITALS: Ht 160 cm; Wt 56.8 kg
[2018-03-28 23:00] VITALS: BP 123/79; Ht 160 cm; Wt 56.8 kg
== END 2018-03-29 00:56 | disposition home or self-care (01) ==
LOC: D.ER 22:55
DX: G43.909 Migraine, unspecified, not intractable, without status migrainosus (principal)

== ENCOUNTER 2018-03-29 19:37 | Emergency (ER) | payer BC ==
[~2018-03-29] VITALS: Ht 160 cm; Wt 56.8 kg
[2018-03-29 20:13] VITALS: Ht 160 cm; Wt 56.8 kg
[2018-03-29 22:41] VITALS: BP 139/95
== END 2018-03-29 22:42 | disposition home or self-care (01) ==
LOC: D.ER 19:37
DX: G43.909 Migraine, unspecified, not intractable, without status migrainosus (principal)

== ENCOUNTER 2018-04-10 20:03 | Emergency (ER) | payer BC ==
[~2018-04-10] VITALS: Ht 160 cm; Wt 56.8 kg
[2018-04-10 20:12] VITALS: BP 137/81; Ht 160 cm; Wt 56.8 kg
== END 2018-04-10 23:00 | disposition left against medical advice (07) ==
LOC: D.ER 20:03
DX: G43.709 Chronic migraine without aura, not intractable, without status migrainosus (principal)

== ENCOUNTER 2018-09-13 01:49 | Emergency (ER) | payer BC ==
[~2018-09-13] VITALS: Ht 160 cm; Wt 59.1 kg
[2018-09-13 01:56] VITALS: Ht 160 cm; Wt 59.1 kg
[2018-09-13] MEDS ORDERED: PROPRANOLOL HCL80 MG PO (01:58)
[2018-09-13] MEDS ORDERED: BUTALB-APAP-CA1 EACH PO (02:12)
[2018-09-13 03:18] VITALS: BP 116/72
== END 2018-09-13 03:18 | disposition home or self-care (01) ==
LOC: D.ER 01:49
DX: G43.709 Chronic migraine without aura, not intractable, without status migrainosus (principal)

== ENCOUNTER 2018-10-02 22:37 | Emergency (ER) | payer BC ==
[~2018-10-02] VITALS: Ht 160 cm; Wt 59.1 kg
[2018-10-02 23:04] VITALS: BP 128/76; Ht 160 cm; Wt 59.1 kg
[2018-10-02 23:51] LABS: HEMATOCRIT 33.9 % (36.0-48.0); LYMPHOCYTES 30.2 % (15-50); MCHC 35.4 g/dL (31.0-37.0); MCV 93.1 fL (80.0-100.0); MEAN PLATELET VOLUME 8.8 fL (7.4-10.4); NEUTROPHILS 62.8 % (40-80); PLATELET COUNT 302 10x3/uL (130-400); RBC 3.64 10x6/uL (4.00-5.40); RDW 12.3 % (11.5-14.5); WBC 8.5 10x3/uL (4.8-10.8)
[2018-10-03 00:05] LABS: ALBUMIN 3.8 g/dL (3.4-5.0); ALKALINE PHOSPHATASE 85 U/L (46-116); ALT (SGPT) 37 U/L (10-68); BILIRUBIN - TOTAL 0.22 mg/dL (0.2-1.3); CALC OSMOLALITY 281 mosm/kg (275-300); CALCIUM 8.9 mg/dL (8.5-10.1); CARBON DIOXIDE 24.8 mmol/L (21.0-32.0); CHLORIDE - SERUM 104 mmol/L (98-107); CREATININE - SERUM 0.9 mg/dL (0.6-1.3); GLUCOSE 117 mg/dL (74-106); POTASSIUM - SERUM 3.9 mmol/L (3.5-5.1); PROTEIN - SERUM 6.9 g/dL (6.4-8.2); SODIUM 141 mmol/L (136-145); UREA NITROGEN 13 mg/dL (7-18); eGFR NON AFRICAN AMERICAN 73 mL/min (90-120)
[2018-10-03 00:09] LABS: AMYLASE - SERUM 35 U/L (25-115); LIPASE 175 U/L (73-393)
[2018-10-03 00:11] LABS: TROPONIN-I < 0.017 ng/mL (0.000-0.060)
[2018-10-03 00:30] LABS: APPEARANCE CLEAR (CLEAR); COLOR YELLOW (YELLOW); SPECIFIC GRAVITY 1.005 (1.005-1.020)
[2018-10-03 00:31] LABS: BILIRUBIN NEGATIVE (NEGATIVE); GLUCOSE NEGATIVE (NEGATIVE); KETONE NEGATIVE (NEGATIVE); NITRITE NEGATIVE (NEGATIVE); PROTEIN NEGATIVE (NEGATIVE); UROBILINOGEN NORMAL (NORMAL)
== END 2018-10-03 01:51 | disposition left against medical advice (07) ==
LOC: D.ER 22:37
PROVIDERS: Family Medicine
DX: R10.31 Right lower quadrant pain (principal)

== ENCOUNTER → 2018-10-02 | Emergency (ER) | payer BC ==
[~2018-10-02] VITALS: Ht 160 cm; Wt 59.1 kg
[~2018-10-02] MED LIST changes: +BUTALB-APAP-CA1 EACH PO; +PROPRANOLOL HCL80 MG PO
[2018-10-02 02:01] VITALS: Ht 160 cm; Wt 59.1 kg
[2018-10-02 02:49] VITALS: BP 134/87
== END | disposition home or self-care (01) ==
LOC: D.ER 01:51
DX: G43.909 Migraine, unspecified, not intractable, without status migrainosus (principal)

== ENCOUNTER 2019-04-20 20:43 | Emergency (ER) | payer BC ==
[~2019-04-20] VITALS: Ht 160 cm; Wt 59.1 kg
[2019-04-20 21:01] VITALS: Ht 160 cm; Wt 59.1 kg
[2019-04-20] MEDS ORDERED: PROPAFENONE HC300 MG (21:02)
[2019-04-20] MEDS ORDERED: CYMBALTA20 MG (21:02)
[2019-04-20] MEDS ORDERED: IMITREX100 MG (21:02)
[2019-04-20] MEDS ORDERED: PHENERGAN25 M1 PO (23:40)
[2019-04-20 23:45] VITALS: BP 118/75
== END 2019-04-20 23:45 | disposition home or self-care (01) ==
LOC: D.ER 20:43
DX: G43.909 Migraine, unspecified, not intractable, without status migrainosus (principal)

== ENCOUNTER 2019-04-24 17:44 | Emergency (ER) | payer BC ==
[~2019-04-24] VITALS: Ht 160 cm; Wt 61.4 kg
[~2019-04-24 17:44] MED LIST changes: +CYMBALTA20 MG; +IMITREX100 MG; +PROPAFENONE HC300 MG
[2019-04-24 17:47] VITALS: Ht 160 cm; Wt 61.4 kg
[2019-04-24 18:35] VITALS: BP 144/94
== END 2019-04-24 18:58 | disposition home or self-care (01) ==
LOC: D.ER 17:44
DX: Z76.5 Malingerer [conscious simulation] (principal)

== ENCOUNTER 2019-05-11 20:36 | Emergency (ER) | payer BC ==
[~2019-05-11] VITALS: Ht 160 cm; Wt 59.1 kg
[2019-05-11 20:47] VITALS: BP 139/94; Ht 160 cm; Wt 59.1 kg
[2019-05-11 21:16] LABS: HEMATOCRIT 35.3 % (36.0-48.0); MCV 94.1 fL (80.0-100.0); MEAN PLATELET VOLUME 9.5 fL (7.4-10.4); PLATELET COUNT 254 10x3/uL (130-400); RBC 3.75 10x6/uL (4.00-5.40); RDW 12.6 % (11.5-14.5); WBC 7.3 10x3/uL (4.8-10.8)
[2019-05-11 21:27] LABS: APTT 27.4 SECONDS (22.8-39.4); INR 1.06 (0.85-1.17); PROTIME 13.3 SECONDS (11.6-15.0)
[2019-05-11 21:34] LABS: ALBUMIN 3.9 g/dL (3.4-5.0); ALKALINE PHOSPHATASE 99 U/L (46-116); ALT (SGPT) 24 U/L (10-68); BILIRUBIN - TOTAL 0.21 mg/dL (0.2-1.3); CALC OSMOLALITY 287 mosm/kg (275-300); CALCIUM 8.8 mg/dL (8.5-10.1); CARBON DIOXIDE 24.3 mmol/L (21.0-32.0); CHLORIDE - SERUM 110 mmol/L (98-107); CREATININE - SERUM 0.9 mg/dL (0.6-1.3); GLUCOSE 103 mg/dL (74-106); POTASSIUM - SERUM 3.4 mmol/L (3.5-5.1); PROTEIN - SERUM 6.8 g/dL (6.4-8.2); SODIUM 145 mmol/L (136-145); UREA NITROGEN 11 mg/dL (7-18); eGFR NON AFRICAN AMERICAN 73 mL/min (90-120)
[2019-05-11 21:35] LABS: EOSINOPHILS 1 % (0-7); LYMPHOCYTES 54 % (15-50); MONOCYTES 3 % (2-11); NEUTROPHILS 42 % (40-80); PLATELET ESTIMATE NORMAL
[2019-05-11 21:45] LABS: CREATINE KINASE 99 UL (21-215); PRO BNP 86 pg/mL (0-125)
[2019-05-11 21:46] LABS: TROPONIN-I < 0.017 ng/mL (0.000-0.060)
== END 2019-05-11 21:11 | disposition left against medical advice (07) ==
LOC: D.ER 20:36
PROVIDERS: Family Medicine
DX: J45.909 Unspecified asthma, uncomplicated (principal)

== ENCOUNTER 2019-06-09 02:11 | Emergency (ER) | payer BC ==
[~2019-06-09] VITALS: Ht 160 cm; Wt 59.1 kg
[2019-06-09 02:18] VITALS: Ht 160 cm; Wt 59.1 kg
[2019-06-09 06:00] VITALS: BP 156/89
== END 2019-06-09 06:00 | disposition home or self-care (01) ==
LOC: D.ER 02:11
DX: G43.909 Migraine, unspecified, not intractable, without status migrainosus (principal)

== ENCOUNTER 2019-06-23 23:13 | Emergency (ER) | payer BC ==
[~2019-06-23] VITALS: Ht 160 cm; Wt 59.4 kg
[2019-06-23 23:15] VITALS: BP 138/86; Ht 160 cm; Wt 59.4 kg
== END 2019-06-24 01:09 | disposition home or self-care (01) ==
LOC: D.ER 23:13
DX: G43.919 Migraine, unspecified, intractable, without status migrainosus (principal)

== ENCOUNTER 2019-07-19 00:34 | Emergency (ER) | payer BC ==
[~2019-07-19] VITALS: Ht 160 cm; Wt 61.4 kg
[2019-07-19 00:50] VITALS: Ht 160 cm; Wt 61.4 kg
[2019-07-19 01:33] VITALS: BP 104/73
== END 2019-07-19 01:50 | disposition home or self-care (01) ==
LOC: D.ER 00:34
DX: G43.909 Migraine, unspecified, not intractable, without status migrainosus (principal)

== ENCOUNTER 2019-08-14 01:41 | Emergency (ER) | payer BC ==
[~2019-08-14] VITALS: Ht 160 cm; Wt 61.4 kg
[2019-08-14 01:48] VITALS: Ht 160 cm; Wt 61.4 kg
[2019-08-14 02:51] VITALS: BP 139/89
== END 2019-08-14 02:52 | disposition home or self-care (01) ==
LOC: D.ER 01:41
DX: R51 Headache (principal)

== ENCOUNTER 2019-09-04 05:02 | Emergency (ER) | payer BC ==
[~2019-09-04] VITALS: Ht 160 cm; Wt 59.1 kg
[2019-09-04 05:14] VITALS: Ht 160 cm; Wt 59.1 kg
[2019-09-04 06:08] LABS: BASOPHILS 0.4 % (0-2); EOSINOPHILS 2.3 % (0-7); HEMATOCRIT 34.8 % (36.0-48.0); IMMATURE GRANULOCYTES 0.2 % (0-5); LYMPHOCYTES 49.2 % (15-50); MCH 32.5 pg (26.0-34.0); MCHC 34.5 g/dL (31.0-37.0); MCV 94.3 fL (80.0-100.0); MEAN PLATELET VOLUME 9.3 fL (7.4-10.4); MONOCYTES 8.5 % (2-11); NEUTROPHILS 39.4 % (40-80); PLATELET COUNT 223 10x3/uL (130-400); RBC 3.69 10x6/uL (4.00-5.40); RDW 12.6 % (11.5-14.5); WBC 5.3 10x3/uL (4.8-10.8)
[2019-09-04 06:11] LABS: CALC OSMOLALITY 283 mosm/kg (275-300); CALCIUM 8.4 mg/dL (8.5-10.1); CARBON DIOXIDE 23.7 mmol/L (21.0-32.0); CHLORIDE - SERUM 106 mmol/L (98-107); CREATININE - SERUM 0.8 mg/dL (0.6-1.3); GLUCOSE 127 mg/dL (74-106); POTASSIUM - SERUM 3.2 mmol/L (3.5-5.1); SODIUM 141 mmol/L (136-145); UREA NITROGEN 15 mg/dL (7-18); eGFR NON AFRICAN AMERICAN 83 mL/min (90-120)
[2019-09-04 06:17] LABS: ALBUMIN 3.5 g/dL (3.4-5.0); ALKALINE PHOSPHATASE 82 U/L (46-116); ALT (SGPT) 21 U/L (10-68); BILIRUBIN - TOTAL 0.26 mg/dL (0.2-1.3); MAGNESIUM - SERUM 1.8 mg/dL (1.8-2.4); PROTEIN - SERUM 6.5 g/dL (6.4-8.2)
[2019-09-04 08:30] VITALS: BP 113/76
== END 2019-09-04 08:31 | disposition home or self-care (01) ==
LOC: D.ER 05:02
PROVIDERS: Family Medicine
DX: T50.905A Adverse effect of unspecified drugs, medicaments and biological substances, initial encounter (principal); F15.93 Other stimulant use, unspecified with withdrawal; E87.6 Hypokalemia; I10 Essential (primary) hypertension; R44.3 Hallucinations, unspecified

== ENCOUNTER 2019-10-03 03:09 | Emergency (ER) | payer BC ==
[~2019-10-03] VITALS: Ht 160 cm; Wt 59.1 kg
[2019-10-03 03:14] VITALS: BP 113/87; Ht 160 cm; Wt 59.1 kg
== END 2019-10-03 04:14 | disposition home or self-care (01) ==
LOC: D.ER 03:09
DX: R51 Headache (principal); I10 Essential (primary) hypertension; J45.909 Unspecified asthma, uncomplicated

== ENCOUNTER 2019-10-03 23:00 | Emergency (ER) | payer BC ==
[~2019-10-03] VITALS: Ht 160 cm; Wt 59.1 kg
[2019-10-03 23:10] VITALS: Ht 160 cm; Wt 59.1 kg
[2019-10-04 00:58] VITALS: BP 125/78
== END 2019-10-04 00:58 | disposition home or self-care (01) ==
LOC: D.ER 23:00
DX: G43.909 Migraine, unspecified, not intractable, without status migrainosus (principal); I10 Essential (primary) hypertension; J45.909 Unspecified asthma, uncomplicated

== ENCOUNTER 2019-10-05 02:04 | Emergency (ER) | payer BC ==
[~2019-10-05] VITALS: Ht 160 cm; Wt 59.1 kg
[2019-10-05 02:09] VITALS: Ht 160 cm; Wt 59.1 kg
[2019-10-05 02:57] VITALS: BP 123/72
== END 2019-10-05 02:55 | disposition home or self-care (01) ==
LOC: D.ER 02:04
DX: G43.909 Migraine, unspecified, not intractable, without status migrainosus (principal); I10 Essential (primary) hypertension; J45.909 Unspecified asthma, uncomplicated

== ENCOUNTER 2019-10-12 21:14 | Emergency (ER) | payer BC ==
[~2019-10-12] VITALS: Ht 160 cm; Wt 59.0 kg
[2019-10-12 21:30] VITALS: Ht 160 cm; Wt 59.0 kg
[2019-10-12 22:44] VITALS: BP 117/78
== END 2019-10-12 22:44 | disposition home or self-care (01) ==
LOC: D.ER 21:14
DX: G43.909 Migraine, unspecified, not intractable, without status migrainosus (principal); I10 Essential (primary) hypertension

== ENCOUNTER 2019-10-13 21:52 | Emergency (ER) | payer BC ==
[~2019-10-13] VITALS: Ht 160 cm; Wt 59.1 kg
[2019-10-13 22:09] VITALS: BP 121/74; Ht 160 cm; Wt 59.1 kg
== END 2019-10-13 23:34 | disposition left against medical advice (07) ==
LOC: D.ER 21:52
DX: G43.909 Migraine, unspecified, not intractable, without status migrainosus (principal); Z53.29 Procedure and treatment not carried out because of patient's decision for other reasons; Z76.5 Malingerer [conscious simulation]; I10 Essential (primary) hypertension

== ENCOUNTER 2019-10-14 17:30 | Emergency (ER) | payer BC ==
[~2019-10-14] VITALS: Ht 160 cm; Wt 59.1 kg
[2019-10-14 18:09] VITALS: BP 109/93; Ht 160 cm; Wt 59.1 kg
== END 2019-10-14 19:09 | disposition left against medical advice (07) ==
LOC: D.ER 17:30
DX: Z76.5 Malingerer [conscious simulation] (principal); I10 Essential (primary) hypertension

== ENCOUNTER 2019-11-03 06:39 | Emergency (ER) | payer BC ==
[~2019-11-03] VITALS: Ht 160 cm; Wt 59.1 kg
[2019-11-03 06:45] VITALS: BP 147/95; Ht 160 cm; Wt 59.1 kg
== END 2019-11-03 07:37 | disposition home or self-care (01) ==
LOC: D.ER 06:39
DX: G43.909 Migraine, unspecified, not intractable, without status migrainosus (principal); I10 Essential (primary) hypertension

== ENCOUNTER 2020-02-13 00:46 | Emergency (ER) | payer BC ==
[~2020-02-13] VITALS: Ht 160 cm; Wt 56.8 kg
[2020-02-13 01:00] VITALS: Ht 160 cm; Wt 56.8 kg
[2020-02-13 02:05] VITALS: BP 127/92
== END 2020-02-13 02:07 | disposition home or self-care (01) ==
LOC: D.ER 00:46
DX: G43.909 Migraine, unspecified, not intractable, without status migrainosus (principal); R05 Cough; J45.909 Unspecified asthma, uncomplicated

== ENCOUNTER 2020-02-27 02:40 | Emergency (ER) | payer BC ==
[~2020-02-27] VITALS: Ht 160 cm; Wt 56.7 kg
[2020-02-27 03:01] VITALS: BP 115/90; Ht 160 cm; Wt 56.7 kg
== END 2020-02-27 03:17 | disposition home or self-care (01) ==
LOC: D.ER 02:40
DX: R51 Headache (principal); J45.909 Unspecified asthma, uncomplicated; R11.10 Vomiting, unspecified

== ENCOUNTER 2020-04-08 11:36 | Emergency (ER) | payer BC ==
[~2020-04-08] VITALS: Ht 160 cm; Wt 56.8 kg
[2020-04-08 11:40] VITALS: Ht 160 cm; Wt 56.8 kg
[2020-04-08 12:48] LABS: BASOPHILS 0.3 % (0-2); HEMATOCRIT 43.2 % (36.0-48.0); HEMOGLOBIN 14.3 g/dL (12-16); IMMATURE GRANULOCYTES 0.4 % (0-5); LYMPHOCYTES 31.1 % (15-50); MCH 32.1 pg (26.0-34.0); MCHC 33.1 g/dL (31.0-37.0); MCV 97.1 fL (80.0-100.0); MONOCYTES 5.7 % (2-11); NEUTROPHILS 60.5 % (40-80); RBC 4.45 10x6/uL (4.00-5.40); RDW 12.6 % (11.5-14.5); WBC 6.9 10x3/uL (4.8-10.8)
[2020-04-08 12:57] LABS: PLATELET COUNT 270 10x3/uL (130-400)
[2020-04-08 13:02] LABS: CALC OSMOLALITY 277 mosm/kg (275-300); CALCIUM 9.8 mg/dL (8.5-10.1); CARBON DIOXIDE 25.7 mmol/L (21.0-32.0); CHLORIDE - SERUM 105 mmol/L (98-107); CREATININE - SERUM 1.2 mg/dL (0.6-1.3); GLUCOSE 91 mg/dL (74-106); POTASSIUM - SERUM 4.5 mmol/L (3.5-5.1); SODIUM 140 mmol/L (136-145); UREA NITROGEN 9 mg/dL (7-18); eGFR NON AFRICAN AMERICAN 52 mL/min (90-120)
[2020-04-08 13:08] LABS: ALBUMIN 4.6 g/dL (3.4-5.0); ALKALINE PHOSPHATASE 93 U/L (30-120); ALT (SGPT) 48 U/L (10-68); AMYLASE - SERUM 32 U/L (25-115); BILIRUBIN - TOTAL 0.33 mg/dL (0.2-1.3); LIPASE 99 U/L (73-393); TROPONIN-I < 0.017 ng/mL (0.000-0.060)
[2020-04-08 13:38] LABS: BILIRUBIN NEGATIVE (NEGATIVE); KETONE NEGATIVE (NEGATIVE); NITRITE NEGATIVE (NEGATIVE); UROBILINOGEN NORMAL (NORMAL)
[2020-04-08 13:43] VITALS: BP 173/113
[2020-04-08] MEDS ORDERED: CHRONULAC30 ML PO (13:52)
== END 2020-04-08 13:59 | disposition home or self-care (01) ==
LOC: D.ER 11:36
PROVIDERS: Emergency Medicine
DX: K59.01 Slow transit constipation (principal); R10.9 Unspecified abdominal pain; I10 Essential (primary) hypertension; J45.909 Unspecified asthma, uncomplicated; R11.2 Nausea with vomiting, unspecified

== ENCOUNTER 2020-05-10 05:10 | Emergency (ER) | payer BC ==
[~2020-05-10] VITALS: Ht 160 cm; Wt 59.1 kg
[~2020-05-10 05:10] MED LIST changes: +CHRONULAC30 ML PO
[2020-05-10 05:14] VITALS: Ht 160 cm; Wt 59.1 kg
[2020-05-10] MEDS ORDERED: TOPAMAX100 MG PO (05:15)
[2020-05-10 06:25] VITALS: BP 139/99
== END 2020-05-10 06:25 | disposition home or self-care (01) ==
LOC: D.ER 05:10
DX: G43.909 Migraine, unspecified, not intractable, without status migrainosus (principal)

== ENCOUNTER 2020-10-15 00:48 | Emergency (ER) | payer BC ==
[~2020-10-15] VITALS: Ht 160 cm; Wt 59.1 kg
[~2020-10-15 00:48] MED LIST changes: +AMITIZA24 MCG PO; +TYLENOL W/CODEI1 TAB PO
[2020-10-15 00:54] VITALS: Ht 160 cm; Wt 59.1 kg
[2020-10-15] MEDS ORDERED: AMBIEN10 MG PO (00:58)
[2020-10-15] MEDS ORDERED: NUCYNTA50 MG PO (00:58)
[2020-10-15 01:26] VITALS: BP 130/82
[2020-10-15 01:40] LABS: BASOPHILS 0.2 % (0-2); EOSINOPHILS 2.4 % (0-7); HEMOGLOBIN 12.7 g/dL (12-16); IMMATURE GRANULOCYTES 0.2 % (0-5); LYMPHOCYTE ABS# 1.04 10x3/uL (1.18-3.74); LYMPHOCYTES 22.4 % (15-50); MCH 32.2 pg (26.0-34.0); MCHC 33.4 g/dL (31.0-37.0); MCV 96.4 fL (80.0-100.0); MEAN PLATELET VOLUME 9.5 fL (7.4-10.4); MONOCYTES 9.7 % (2-11); NEUTROPHIL ABS# 3.02 10x3/uL (1.56-6.13); NEUTROPHILS 65.1 % (40-80); PLATELET COUNT 178 10x3/uL (130-400); RBC 3.94 10x6/uL (4.00-5.40); RDW 12.8 % (11.5-14.5); WBC 4.6 10x3/uL (4.8-10.8)
[2020-10-15 01:42] LABS: ANION GAP 12.2 mmol/L (8-16); CALCIUM 8.6 mg/dL (8.5-10.1); CARBON DIOXIDE 26.2 mmol/L (21.0-32.0); CREATININE - SERUM 1.1 mg/dL (0.6-1.3); POTASSIUM - SERUM 3.4 mmol/L (3.5-5.1)
[2020-10-15 01:48] LABS: ALBUMIN 4.4 g/dL (3.4-5.0); BILIRUBIN - TOTAL 0.2 mg/dL (0.2-1.3); PROTEIN - SERUM 7.7 g/dL (6.4-8.2)
[2020-10-15 01:51] LABS: BILIRUBIN NEGATIVE (NEGATIVE); KETONE NEGATIVE (NEGATIVE); NITRITE NEGATIVE (NEGATIVE); UROBILINOGEN NORMAL mg/dL (< 2)
[2020-10-15 01:53] LABS: BACTERIA FEW HPF (NONE SEEN); SQUAMOUS EPITHELIAL 0-5 HPF (0-4); WHITE CELLS - URINE 0-5 HPF (0-4)
[2020-10-15] MEDS ORDERED: BENADRYL50 MG PO (02:08)
[2020-10-15] MEDS ORDERED: HYDROCODON-ACE1 EA10 PO (02:08)
== END 2020-10-15 02:25 | disposition home or self-care (01) ==
LOC: D.ER 00:48
PROVIDERS: Family Medicine
DX: R53.83 Other fatigue (principal); R50.9 Fever, unspecified; M79.10 Myalgia, unspecified site; R06.02 Shortness of breath; T88.1XXA Other complications following immunization, not elsewhere classified, initial encounter; I10 Essential (primary) hypertension; J45.909 Unspecified asthma, uncomplicated

== ENCOUNTER 2020-10-15 02:35 | Emergency (ER) | payer BC ==
[~2020-10-15] VITALS: Ht 160 cm; Wt 61.4 kg
[~2020-10-15 02:35] MED LIST changes: +BENADRYL50 MG PO; +HYDROCODON-ACE1 EA10 PO; +NUCYNTA50 MG PO
[2020-10-15 02:40] VITALS: Ht 160 cm; Wt 61.4 kg
[2020-10-15 03:11] LABS: AMYLASE - SERUM 37 U/L (25-115); CKMB 0.6 U/L (0.0-3.6); CREATINE KINASE 87 UL (21-215); LIPASE 173 U/L (73-393); TROPONIN-I < 0.017 ng/mL (0.000-0.060)
[2020-10-15 06:13] LABS: CKMB 0.3 U/L (0.0-3.6); CREATINE KINASE 86 UL (21-215)
[2020-10-15 06:16] LABS: TROPONIN-I < 0.017 ng/mL (0.000-0.060)
[2020-10-15 07:19] LABS: INFLUENZA TYPE A NEGATIVE (NEGATIVE); INFLUENZA TYPE B NEGATIVE (NEGATIVE); SARS-CoV-2 ANTIGEN NEGATIVE- SARS-COV-2 (NEGATIVE)
[2020-10-15 08:07] VITALS: BP 91/43
== END 2020-10-15 08:21 | disposition home or self-care (01) ==
LOC: D.ER 02:35
PROVIDERS: Family Medicine
DX: T88.1XXA Other complications following immunization, not elsewhere classified, initial encounter (principal); R07.9 Chest pain, unspecified; R50.9 Fever, unspecified; I10 Essential (primary) hypertension; R11.0 Nausea; R10.13 Epigastric pain

== ENCOUNTER 2020-11-21 16:48 | Observation (INO) | payer BC ==
[~2020-11-21] VITALS: Ht 160 cm; Wt 61.4 kg
[2020-11-21 17:41] LABS: BASOPHILS 0.1 % (0-2); EOSINOPHILS 1.3 % (0-7); HEMOGLOBIN 13.1 g/dL (12-16); IMMATURE GRANULOCYTES 0.3 % (0-5); LYMPHOCYTE ABS# 2.62 10x3/uL (1.18-3.74); LYMPHOCYTES 32.8 % (15-50); MCH 32.7 pg (26.0-34.0); MCHC 33.6 g/dL (31.0-37.0); MCV 97.3 fL (80.0-100.0); MEAN PLATELET VOLUME 9.6 fL (7.4-10.4); MONOCYTES 6.6 % (2-11); NEUTROPHILS 58.9 % (40-80); RBC 4.01 10x6/uL (4.00-5.40); RDW 12.9 % (11.5-14.5)
[2020-11-21 17:48] LABS: PLATELET COUNT 270 10x3/uL (130-400)
[2020-11-21 17:54] LABS: CALC OSMOLALITY 273 mosm/kg (275-300); CALCIUM 9.6 mg/dL (8.5-10.1); CARBON DIOXIDE 27.3 mmol/L (21.0-32.0); CHLORIDE - SERUM 102 mmol/L (98-107); GLUCOSE 103 mg/dL (74-106); POTASSIUM - SERUM 3.5 mmol/L (3.5-5.1); SODIUM 138 mmol/L (136-145); UREA NITROGEN 6 mg/dL (7-18); eGFR NON AFRICAN AMERICAN 64 mL/min (90-120)
[2020-11-21 18:00] LABS: ACETAMINOPHEN < 10.0 ug/mL (10.0-30.0); ALBUMIN 4.7 g/dL (3.4-5.0); ALKALINE PHOSPHATASE 113 U/L (30-120); ALT (SGPT) 26 U/L (10-68); BILIRUBIN - TOTAL 0.24 mg/dL (0.2-1.3); MAGNESIUM - SERUM 1.8 mg/dL (1.8-2.4)
[2020-11-21 18:10] LABS: BILIRUBIN NEGATIVE (NEGATIVE); KETONE NEGATIVE (NEGATIVE); NITRITE NEGATIVE (NEGATIVE); UROBILINOGEN NORMAL mg/dL (< 2)
[2020-11-21 18:12] LABS: HCG URINE NEGATIVE (NEGATIVE)
--- NOTE | 2020-11-21 18:18 | NUR ---
SPOKE WITH SOFY AT [facility] ABOUT POSSIBLE OVERDOSE ON UNKNOWN AMOUNTS OF HOME MEDICATION. RECOMMENDATION FOR BASELINE EKG, ACETAMINOPHEN LEVEL, ASA LEVEL, CBC, CMP, LYTES, RENAL FUNCTION, REPEAT ACETAMINOPHEN IN 4 HOURS.
[2020-11-21 18:29] LABS: UDS - AMPHET NEGATIVE QUAL (NEGATIVE); UDS - BARB POSITIVE QUAL (NEGATIVE); UDS - BENZO NEGATIVE QUAL (NEGATIVE); UDS - COCAINE NEGATIVE QUAL (NEGATIVE); UDS - OPIATE NEGATIVE QUAL (NEGATIVE); UDS - PCP NEGATIVE QUAL (NEGATIVE); UDS - THC NEGATIVE QUAL (NEGATIVE)
[2020-11-21 18:38] LABS: APTT 25.2 SECONDS (22.8-39.4); PROTIME 12.2 SECONDS (11.6-15.0)
[2020-11-21 18:52] LABS: CKMB 1.3 U/L (0.0-3.6); CREATINE KINASE 134 UL (21-215); TROPONIN-I < 0.017 ng/mL (0.000-0.060)
[2020-11-21 18:54] VITALS: Ht 160 cm; Wt 61.4 kg
[2020-11-21 19:13] VITALS: BP 161/91
[2020-11-21 20:00] VITALS: BP 145/88
[2020-11-21 21:05] VITALS: BP 131/77
[2020-11-21 22:01] VITALS: BP 143/92
[2020-11-21 22:23] LABS: CKMB 0.9 U/L (0.0-3.6); CREATINE KINASE 95 UL (21-215)
[2020-11-21 22:30] LABS: ACETAMINOPHEN < 10.0 ug/mL (10.0-30.0); TROPONIN-I < 0.017 ng/mL (0.000-0.060)
[2020-11-21 23:06] VITALS: BP 140/88
[2020-11-22 00:05] VITALS: BP 166/91
[2020-11-22 01:03] VITALS: BP 133/87
[2020-11-22 02:14] VITALS: BP 129/81
[2020-11-22 03:06] VITALS: BP 130/79
[2020-11-22 03:56] LABS: BASOPHILS 0.2 % (0-2); EOSINOPHILS 2.7 % (0-7); HEMATOCRIT 35.4 % (36.0-48.0); IMMATURE GRANULOCYTES 0.2 % (0-5); LYMPHOCYTE ABS# 2.73 10x3/uL (1.18-3.74); LYMPHOCYTES 45.5 % (15-50); MCH 32.5 pg (26.0-34.0); MCHC 33.9 g/dL (31.0-37.0); MCV 95.9 fL (80.0-100.0); MEAN PLATELET VOLUME 9.3 fL (7.4-10.4); MONOCYTES 6.7 % (2-11); NEUTROPHIL ABS# 2.69 10x3/uL (1.56-6.13); NEUTROPHILS 44.7 % (40-80); PLATELET COUNT 233 10x3/uL (130-400); RBC 3.69 10x6/uL (4.00-5.40); RDW 12.9 % (11.5-14.5)
--- NOTE | 2020-11-22 03:56 | NUR ---
PT AMBULATED TO BATHROOM ON OWN, NO DIFFICULTIES. IVF INFUSING. PT IS ON MONITOR WITH VSS. PT HAS NO COMPLAINTS. PT GIVEN ICE WATER.
[2020-11-22 04:10] LABS: ALBUMIN 3.8 g/dL (3.4-5.0); ALKALINE PHOSPHATASE 96 U/L (30-120); ALT (SGPT) 22 U/L (10-68); BILIRUBIN - TOTAL 0.24 mg/dL (0.2-1.3); CALC OSMOLALITY 275 mosm/kg (275-300); CALCIUM 8.7 mg/dL (8.5-10.1); CARBON DIOXIDE 25.8 mmol/L (21.0-32.0); CHLORIDE - SERUM 106 mmol/L (98-107); CREATININE - SERUM 0.8 mg/dL (0.6-1.3); GLUCOSE 106 mg/dL (74-106); MAGNESIUM - SERUM 1.9 mg/dL (1.8-2.4); PHOSPHOROUS 4.3 mg/dL (2.5-4.9); POTASSIUM - SERUM 3.4 mmol/L (3.5-5.1); PROTEIN - SERUM 6.7 g/dL (6.4-8.2); SODIUM 139 mmol/L (136-145); UREA NITROGEN 7 mg/dL (7-18); eGFR NON AFRICAN AMERICAN 83 mL/min (90-120)
[2020-11-22 05:10] VITALS: BP 155/92
[2020-11-22 05:42] LABS: CKMB 0.7 U/L (0.0-3.6); CREATINE KINASE 90 UL (21-215)
[2020-11-22 05:48] LABS: TROPONIN-I < 0.017 ng/mL (0.000-0.060)
[2020-11-22 06:31] VITALS: BP 151/85
--- NOTE | 2020-11-22 08:08 | NUR ---
PT ASSISTED TO BATHROOM. WALKS WITH STEADY GAIT.
[2020-11-22 09:17] LABS: CKMB 0.6 U/L (0.0-3.6); CREATINE KINASE 71 UL (21-215)
[2020-11-22 09:19] LABS: TROPONIN-I < 0.017 ng/mL (0.000-0.060)
--- NOTE | 2020-11-22 13:16 | NUR ---
PT ADMITS TO A HX OF DEPRESSION. SHE TAKES CYMBALTA FOR HER DEPRESSION, BUT SHE FEELS THAT IT MAY NEED TO BE ADJUSTED. PT HAS RECENTLY HAD A FAMILY FRIEND COMMIT SUICIDE AND IS GRIEVING AT THIS TIME. DENIES SUICIDE IDEATION. PT HAS A GOOD SUPPORT SYSTEM. PT IS NO RISK PER ASSESSMENT. RESOURCES GIVEN AND REVIEWED WITH THE PATIENT. PT VERBALIZED UNDERSTANDING. REPORTED OFF TO NURSE AND ATTENDING.
[2020-11-22] MEDS ORDERED: IMITREX100 MG (14:31)
[2020-11-22] MEDS ORDERED: IBUPROFEN800 MG (14:33)
[2020-11-22] MEDS ORDERED: PROAIR HFA8.5 GM INH (14:33)
[2020-11-22] MEDS ORDERED: NORCO 7.5/325 T1 TA1 (14:34)
[2020-11-22] MEDS ORDERED: XANAX1 MG PO (14:34)
[2020-11-22] MEDS ORDERED: AMBIEN10 MG (14:34)
[2020-11-22] MEDS ORDERED: ARIPIPRAZOLE 2 MG (14:35)
[2020-11-22] MEDS ORDERED: VYVANSE60 MG (14:35)
[2020-11-22] MEDS ORDERED: CYMBALTA60 MG (14:35)
[2020-11-22] MEDS ORDERED: TOPAMAX200 MG (14:35)
[2020-11-22] MEDS ORDERED: AMOXICILLIN500 M1 (14:36)
[2020-11-22] MEDS ORDERED: MAXALT10 MG (14:36)
[2020-11-22] MEDS ORDERED: ROBAXIN500 MG (14:37)
[2020-11-22] MEDS ORDERED: ZOFRAN ODT4 MG/UDTAB (14:38)
[2020-11-22] MEDS ORDERED: PEPCID AC20 MG (14:38)
[2020-11-22] MEDS ORDERED: LISINOPRIL10 MG PO (15:36)
== END 2020-11-22 19:00 | disposition home or self-care (01) ==
LOC: D.ER 16:48 → D.EDHOLD 20:35 → OBSVTIME 20:36 → D.EDHOLD 11-22 19:00
PROVIDERS: Family Medicine; ADMIT Family Medicine; ATTEND Family Medicine
DX: T42.6X1A Poisoning by other antiepileptic and sedative-hypnotic drugs, accidental (unintentional), initial encounter (principal); I10 Essential (primary) hypertension; R07.9 Chest pain, unspecified; R06.00 Dyspnea, unspecified; F41.9 Anxiety disorder, unspecified; F32.9 Major depressive disorder, single episode, unspecified; R00.1 Bradycardia, unspecified

== ENCOUNTER → 2021-02-01 | Emergency (ER) | payer BC ==
[~2021-02-01] VITALS: Ht 160 cm; Wt 61.4 kg
[~2021-02-01] MED LIST changes: +AMBIEN10 MG; +AMOXICILLIN500 M1; +ARIPIPRAZOLE 2 MG; +CYMBALTA60 MG; +IBUPROFEN800 MG; +LISINOPRIL10 MG PO; +MAXALT10 MG; +NORCO 7.5/325 T1 TA1; +PEPCID AC20 MG; +ROBAXIN500 MG; +TOPAMAX200 MG; +VYVANSE60 MG; +ZOFRAN ODT4 MG/UDTAB
[2021-02-01 11:55] VITALS: BP 111/82; Ht 160 cm; Wt 61.4 kg
== END | disposition home or self-care (01) ==
LOC: D.ER 11:52
DX: G43.909 Migraine, unspecified, not intractable, without status migrainosus (principal); I10 Essential (primary) hypertension; J45.909 Unspecified asthma, uncomplicated; I50.9 Heart failure, unspecified